=== PATIENT | male | born 1960 | race Caucasian/White ===

== ENCOUNTER 2017-08-16 15:06 | Inpatient (IN) | payer OTHER ==
[2017-08-16] VITALS (16 sets, daily range): BP systolic 148–190; BP diastolic 106–134; PULSE 106–124; O2SAT 89–95; Ht 177.8 cm; Wt 93.7 kg
[~2017-08-16] VITALS: Ht 177.8 cm; Wt 93.7 kg
[2017-08-16] MEDS ORDERED: LORAZEPAM 2 MG/ML 1 ML VIAL IV STA (15:17)
[2017-08-16] MEDS ORDERED: ONDANSETRON INJ 2 MG/ML 2 ML VIAL IV STA ×2 (15:17→19:48)
[2017-08-16] MEDS ORDERED: SODIUM CHLORIDE 0.9% 1000ML 500 ML IV STA (15:17)
[2017-08-16] MEDS ORDERED: CLONIDINE HCL 0.1 MG TAB PO ONE (15:30)
--- NOTE | 2017-08-16 15:32 | EMERGENCY ROOM VISIT NOTE ---
History Report prepared by Kar: Miryam Paulino Under the Supervision of: Dr. Joes Varner M.D. First contact with patient: 15:12 Chief Complaint: STROKE SYMPTOMS Stated Complaint: WEAKNESS, SLURRED SPEECH History of Present Illness The patient is a 57 year old male who presents to the Emergency Room with complaints of constant stroke like symptoms beginning 12 hours ago. The patient got to [facility] a couple of hours ago. The patient states [facility] He reports room spinning, decreased appetite, and vomiting. He also reports neck pain and a headache beginning after he fell. He denies any fever. The patient is on clonidine, oxycodone, and Klonopin. The patient has not taken any of his medications since yesterday. The patient has a history of seizures, a stroke in 2008, tracheostomy, feeding tube, and PEs. The patient is not on any blood thinner currently. History is limited secondary to the patient being a poor historian. The patient reports alcohol use daily. Source of History: patient History Limited By: other (poor historian) Onset: this morning Position: other (generalized) Quality: other (room spinning) Timing: constant Associated Symptoms: + headache, + neck pain, + vomiting, No fevers Review of Systems ROS is limited secondary to the patient being a poor historian. Past Medical & Surgical Medical Problems: (1) Seizure (2) Stroke Family History Patient reports no known family medical history. Social History Smoking Status: Former Smoker Alcohol Use: other (daily) Occupation Status: other (prisoner) Current/Historical Medications Scheduled Aspirin (Aspirin Chewable), 81 MG PO DAILY Clonazepam (Klonopin), 1 MG PO QPM Clonidine Hcl (Catapres), 0.1 MG PO BID Omeprazole (Prilosec), 20 MG PO DAILY Thiamine Hcl (Vitamin B-1), 100 MG PO DAILY Scheduled PRN Oxycodone Ir (Roxicodone Ir), 5 MG PO Q8H PRN for Pain Allergies Coded Allergies: Shellfish (Unverified Adverse Reaction, Severe, hives/swelling of the throat, 08/16/17) Physical Exam Vital Signs Date Time Temp Pulse Resp B/P (MAP) Pulse Ox O2 Delivery O2 Flow Rate FiO2 08/16/17 17:40 150/121 08/16/17 17:36 111 18 08/16/17 17:07 160/115 08/16/17 17:06 113 21 95 08/16/17 16:59 173/115 08/16/17 16:36 143 18 08/16/17 16:24 139 08/16/17 16:21 170/119 08/16/17 15:37 157/113 08/16/17 15:37 133 22 157/113 94 Room Air 08/16/17 15:36 135 16 94 08/16/17 15:25 97 Room Air 08/16/17 15:09 36.9 137 24 163/128 93 Room Air Physical Exam GENERAL: Patient is in no acute distress. HEENT: No acute trauma, normocephalic atraumatic, mucous membranes moist, no nasal congestion, no scleral icterus. NECK: No stridor, no adenopathy, no meningismus, trachea is midline. LUNGS: Clear to auscultation bilaterally, no wheeze, no rhonchi, breath sounds equal. HEART: Tachycardic with regular rhythm, no murmurs. ABDOMEN: Soft, nontender, bowel sounds positive, no hernias, no peritonitis. EXTREMITIES: No cyanosis or edema, full range of motion of all the joints without pain or difficulty, no signs for acute trauma. NEUROLOGIC: Awake, alert and oriented x 3, somewhat thickened speech, no facial droop, no focal motor deficits, no extremity weakness. SKIN: No rash, no jaundice, no diaphoresis. Medical Decision & Procedures ER Provider Diagnostic Interpretation: Radiology results as stated below per my review and radiologist interpretation: CHEST ONE VIEW PORTABLE, KUB FINDINGS: CHEST: Nodular opacities of the lungs are seen measuring up to 4 mm which suggests calcified granulomas. There is mild prominence of the mediastinum which is nonspecific. Cardiac silhouette is upper limits of normal in size. Atherosclerosis of the aorta. There is no pneumothorax or pleural effusion. There are hazy subsegmental left basilar opacities noted. Bones of the chest appear grossly intact. KUB: Bowel gas pattern is nonobstructive. No urolith identified. No pneumoperitoneum or pneumatosis. Probable phleboliths of the pelvis. Indeterminate 8 mm round calcification projects over the right iliac wing. Prior fusion with discectomy changes of the lower lumbar spine. IMPRESSION: 1. Subsegmental left basilar opacities suggest atelectasis or less likely pneumonitis. 2. Bilateral nodular opacities of the lungs measuring up to 4 mm suggests calcified granulomas. 3. Nonobstructive bowel gas pattern. The above report was generated using voice recognition software. It may contain grammatical, syntax or spelling errors. Electronically signed by: Jake Turk M.D. CHEST ONE VIEW PORTABLE, KUB FINDINGS: CHEST: Nodular opacities of the lungs are seen measuring up to 4 mm which suggests calcified granulomas. There is mild prominence of the mediastinum which is nonspecific. Cardiac silhouette is upper limits of normal in size. Atherosclerosis of the aorta. There is no pneumothorax or pleural effusion. There are hazy subsegmental left basilar opacities noted. Bones of the chest appear grossly intact. KUB: Bowel gas pattern is nonobstructive. No urolith identified. No pneumoperitoneum or pneumatosis. Probable phleboliths of the pelvis. Indeterminate 8 mm round calcification projects over the right iliac wing. Prior fusion with discectomy changes of the lower lumbar spine. IMPRESSION: 1. Subsegmental left basilar opacities suggest atelectasis or less likely pneumonitis. 2. Bilateral nodular opacities of the lungs measuring up to 4 mm suggests calcified granulomas. 3. Nonobstructive bowel gas pattern. The above report was generated using voice recognition software. It may contain grammatical, syntax or spelling errors. Electronically signed by: Jake Turk M.D. CERVICAL SPINE W/O FINDINGS: Bones appear mildly demineralized. Mastoid air cells and middle ear cavities are clear. Cerumen noted within the bilateral external auditory canals. There is no acute cervical spine fracture or subluxation identified. Evaluation of the central canal and neuroforamen is better assessed by MRI. No definite high-grade central canal narrowing identified. There is a least moderate bilateral foraminal stenosis at C5-C6 along with moderate intervertebral disc space narrowing and facet arthrosis. Multilevel mild to moderate facet arthropathy. 3 mm anterolisthesis C2 on C3, likely secondary to long-standing facet disease. Moderate to severe facet arthropathy on the right at this level. Slight reversal the normal cervical lordosis. Lung apices are generally clear. No focal soft tissue abnormality. Atherosclerosis of the bilateral carotid vasculature. IMPRESSION: 1. No acute cervical spine fracture or subluxation identified. 2. Multilevel degenerative changes of the cervical spine as above. 3 mm anterolisthesis C2 on C3 is likely secondary to long-standing facet arthrosis. The above report was generated using voice recognition software. It may contain grammatical, syntax or spelling errors. Electronically signed by: Jake Turk M.D. HEAD WITHOUT CONTRAST (CT) FINDINGS: No acute intracranial hemorrhage, midline shift, intracranial mass, hydrocephalus, territorial ischemia or abnormal extra-axial collection. Cerebral vascular calcifications are seen at the level the skull base. Moderate atrophy with ex vacuo ventriculomegaly. Ill-defined areas of low-attenuation within the periventricular and subcortical white matter suggest chronic microvascular ischemic changes. Encephalomalacia of the right frontal and posterior right parietal lobes are compatible with areas of remote infarction. Ill-defined area of low-attenuation within the central glenys measures 8 mm. ill-defined area of low-attenuation within the ventral medulla, image 6 series 2 is favored to be artifactual. The calvarium is intact. Mastoid air cells are clear. Moderate mucosal thickening of the right maxillary sinus. Mild ethmoid and left maxillary sinus disease. 5 mm osteoma of the right anterior ethmoid air cells. Scalp and soft tissues are unremarkable. IMPRESSION: 1. No acute intracranial hemorrhage, midline shift or territorial infarction. 2. Ill-defined 8 mm area of low-attenuation within the central glenys suggests age-indeterminate lacunar infarction. Correlate with prior imaging. 3. Atrophy with chronic microvascular ischemic changes, appears advanced for patient's stated age. Encephalomalacia from areas of remote infarction involve the right frontal and parietal lobes. The above report was generated using voice recognition software. It may contain grammatical, syntax or spelling errors. Electronically signed by: Jake Turk M.D. Laboratory Results 08/16/17 15:30 Red Blood Count 5.13, Mean Corpuscular Volume 91.0, Mean Corpuscular Hemoglobin 32.7, Mean Corpuscular Hemoglobin Concent 36.0, Mean Platelet Volume 9.2, Neutrophils (%) (Auto) 85.0, Lymphocytes (%) (Auto) 6.8, Monocytes (%) (Auto) 7.5, Eosinophils (%) (Auto) 0.0, Basophils (%) (Auto) 0.3, Neutrophils # (Auto) 8.48, Lymphocytes # (Auto) 0.68, Monocytes # (Auto) 0.75, Eosinophils # (Auto) 0.00, Basophils # (Auto) 0.03 08/16/17 15:30 Test 08/16/17 15:30 08/16/17 17:00 08/16/17 17:51 White Blood Count 9.98 K/uL (4.8-10.8) Red Blood Count 5.13 M/uL (4.7-6.1) Hemoglobin 16.8 g/dL (14.0-18.0) Hematocrit 46.7 % (42-52) Mean Corpuscular Volume 91.0 fL (80-100) Mean Corpuscular Hemoglobin 32.7 pg (25-34) Mean Corpuscular Hemoglobin Concent 36.0 g/dl (32-36) Platelet Count 245 K/uL (130-400) Mean Platelet Volume 9.2 fL (7.4-10.4) Neutrophils (%) (Auto) 85.0 % Lymphocytes (%) (Auto) 6.8 % Monocytes (%) (Auto) 7.5 % Eosinophils (%) (Auto) 0.0 % Basophils (%) (Auto) 0.3 % Neutrophils # (Auto) 8.48 K/uL (1.4-6.5) Lymphocytes # (Auto) 0.68 K/uL (1.2-3.4) Monocytes # (Auto) 0.75 K/uL (0.11-0.59) Eosinophils # (Auto) 0.00 K/uL (0-0.5) Basophils # (Auto) 0.03 K/uL (0-0.2) RDW Standard Deviation 41.2 fL (36.4-46.3) RDW Coefficient of Variation 12.2 % (11.5-14.5) Immature Granulocyte % (Auto) 0.4 % Immature Granulocyte # (Auto) 0.04 K/uL (0.00-0.02) Prothrombin Time 10.9 SECONDS (9.0-12.0) Prothromb Time International Ratio 1.0 (0.9-1.1) Activated Partial Thromboplast Time 23.3 SECONDS (21.0-31.0) Partial Thromboplastin Ratio 0.9 Anion Gap 19.0 mmol/L (3-11) Estimated GFR () 84.1 Estimated GFR (Non- 72.5 BUN/Creatinine Ratio 4.1 (10-20) Calcium Level 8.7 mg/dl (8.5-10.1) Magnesium Level 1.3 mg/dl (1.8-2.4) Total Bilirubin 1.8 mg/dl (0.2-1) Aspartate Amino Transf (AST/SGOT) 133 U/L (15-37) Alanine Aminotransferase (ALT/SGPT) 73 U/L (12-78) Alkaline Phosphatase 77 U/L (45-117) Total Creatine Kinase 305 U/L (39-308) Troponin I < 0.015 ng/ml (0-0.045) Total Protein 9.0 gm/dl (6.4-8.2) Albumin 4.0 gm/dl (3.4-5.0) Globulin 5.0 gm/dl (2.5-4.0) Albumin/Globulin Ratio 0.8 (0.9-2) Thyroid Stimulating Hormone (TSH) 0.563 uIu/ml (0.300-4.500) Urine Color DK YELLOW Urine Appearance CLEAR (CLEAR) Urine pH 5.0 (4.5-7.5) Urine Specific Sadler 1.023 (1.000-1.030) Urine Protein 2+ (NEG) Urine Glucose (UA) NEG (NEG) Urine Ketones 3+ (NEG) Urine Occult Blood 2+ (NEG) Urine Nitrite NEG (NEG) Urine Bilirubin NEG (NEG) Urine Urobilinogen NEG (NEG) Urine Leukocyte Esterase TRACE (NEG) Laboratory results reviewed by me. Medications Administered Medications (Trade) Dose Ordered Sig/Stefano Route Start Time Stop Time Status Last Admin Dose Admin Sodium Chloride 500 ml @ 999 mls/hr Q31M STAT IV 08/16/17 15:17 08/16/17 15:47 DC 08/16/17 15:33 999 MLS/HR Ondansetron HCl (Zofran Inj) 4 mg NOW STAT IV 08/16/17 15:17 08/16/17 15:22 DC 08/16/17 15:34 4 MG Morphine Sulfate (MoRPHine SULFATE INJ) 4 mg Q30M PRN IV 08/16/17 15:30 08/30/17 15:29 08/16/17 15:34 4 MG Clonidine HCl (Catapres Tab) 0.1 mg NOW ONCE PO 08/16/17 15:30 08/16/17 15:31 DC 08/16/17 16:37 0.1 MG Lorazepam (Ativan Inj) 0.5 mg NOW STAT IV 08/16/17 15:17 08/16/17 15:22 DC 08/16/17 15:33 0.5 MG Magnesium Sulfate (Magnesium Sulfate) 2 gm NOW STAT IV 08/16/17 16:08 08/16/17 16:09 DC 08/16/17 16:37 2 GM Morphine Sulfate (MoRPHine SULFATE INJ) 4 mg NOW STAT IV 08/16/17 16:22 08/16/17 16:23 DC 08/16/17 16:37 4 MG Lidocaine HCl (Viscous Lidocaine 2% Soln) 10 ml NOW STAT PO 08/16/17 16:22 08/16/17 16:23 DC 08/16/17 16:37 10 ML Al Hydroxide/Mg Hydroxide (Maalox Susp) 30 ml NOW STAT PO 08/16/17 16:22 08/16/17 16:23 DC 08/16/17 16:37 30 ML Labetalol HCl (Normodyne IV) 20 mg NOW STAT IV 08/16/17 16:37 08/16/17 16:38 DC 08/16/17 17:01 20 MG Multivitamins 10 ml/Thiamine HCl 100 mg/Folic Acid 1 mg/Sodium Chloride 1,011.2 ml @ 500 mls/ hr Q2H2M ONCE IV 08/16/17 16:45 08/16/17 18:46 08/16/17 17:41 500 MLS/HR Labetalol HCl (Normodyne IV) 20 mg NOW STAT IV 08/16/17 17:41 08/16/17 17:42 DC 08/16/17 17:53 20 MG ECG Per My Interpretation Indication: other (tachycardia) Rate (beats per minute): 132 Rhythm: sinus tachycardia Findings: other (Diffuse nonspecific ST and T wave changes, poor R-wave progession ) ED Course 1513: The patient was evaluated in room A10. A complete history and physical exam was performed. 1517: Ordered Ativan Inj 0.5 mg IV, Zofran Inj 4 mg IV, Sodium Chloride 500 ml @ 999 mls/hr IV. 1530: Ordered Clonidine HCl 0.1 mg PO, Morphine Sulfate 4 mg IV. 1608: Ordered Magnesium Sulfate 2 gm IV. 1622: Ordered Maalox Susp 30 ml PO, Lidocaine HCl 10 ml PO, Morphine Sulfate 4 mg IV. 1637: Ordered Labetalol HCl 20 mg IV 1641: I updated the patient on his test results. 1645: Ordered Multivitamins 10 ml/Thiamine HCl 100 mg /Folic Acid 1 mg/Sodium Chloride 1,011.2 ml @ 500 mls/hr IV. 1741: Ordered Labetalol HCl 20 mg IV. 1742: I updated the patient on his test results. He is agreeable to the treatment plan. 1746: Discussed the patient's case with Dr. Moreno. The patient will be evaluated for further management. Medical Decision Differential diagnoses include: withdrawal, intracranial bleed, stroke, bowel obstruction, pneumonia, dehydration, viral illness, infection. There is no leukocytosis or concerning anemia. Renal panel testing shows a low magnesium, no kidney failure. There were a few mild liver enzyme elevations. The patient appears to be in a euthyroid state. EKG shows a sinus tachycardia with some nonspecific change. No acute ischemia. Cardiac enzyme testing 1 is not consistent with acute cardiac injury. Brain CT shows evidence for prior CVA , no acute bleed or mass-effect. C-spine CT does not show fracture, some arthritis was seen. Chest x-ray does not show pneumonia or pneumothorax. There is no worrisome CHF. KUB does not show bowel obstruction or significant constipation. Urinalysis does not show infection, dehydration was noted. Urine drug screen is pending. The patient presents hypertensive, vomiting and tachycardic. There was concern at the shelter that he may have suffered a new CVA, I think this is unlikely. Patient has had symptoms now for at least12 hours, he is not in the window for TPA. He has no focal neurologic deficits on my evaluation. I suspect his symptoms are more so from withdrawal. He has not had his regular meds in at least 24 hours, he has not had alcohol today, he has not had his benzodiazepine or narcotic dosing today. The patient was aggressively managed. He received a banana bag for hydration. He received oral clonidine, IV Zofran, IV morphine. He was given IV labetalol, a second dose was given to help the heart rate and blood pressure. He received IV Ativan as well as a GI cocktail. He was ordered for IV magnesium. The patient is currently resting comfortably. His heart rate is improved, his blood pressure is improved but still high. He remains without any focal neurologic deficit. I do think the patient requires a hospital stay. Again, I suspect his symptoms are primarily from withdrawal. He requires further care in the hospital for his symptoms. I did speak with case management, the guards and the patient were informed. The on-call hospitalist was consulted. Medication Reconcilliation Current Medication List: was personally reviewed by me Blood Pressure Screening Patient's blood pressure: Elevated blood pressure Blood pressure disposition: Referred to PCP (referred to hospitalist) Consults Time Called: 1743 Consulting Physician: Dr. Moreno Returned Call: [phone] Discussed the patient's case with Dr. Moreno. The patient will be evaluated for further management. Impression Primary Impression: Hypertension Additional Impressions: Tachycardia Medication withdrawal Stroke-like symptoms Critical Care I have personally spent greater than 30 minutes of critical care time in the direct management of this patient. This includes bedside care, interpretation of diagnostic studies and testing, discussion with consultants, the patient, and family members, and other required patient management activities. This 30 minutes is in excess of all separately billable procedures. Scribe Attestation The scribe's documentation has been prepared under my direction and personally reviewed by me in its entirety. I confirm that the note above accurately reflects all work, treatment, procedures, and medical decision making performed by me. Departure Information Dispostion Being Evaluated By Hospitalist Referrals No Doctor, Assigned (PCP) Patient Instructions My [facility] Stroke History Time Last Known Well 12 hours ago Stroke t-PA Criteria Reviewed Does NOT meet criteria for t-PA Reason t-PA Not Given Treatment not indicated Problem Qualifiers
[2017-08-16] MEDS: MoRPHine SULFATE 4 MG/ML 1 ML CARP\\VIAL IV PRN ×2 (15:34→19:37)
[2017-08-16 15:42] LABS: BASO % 0.3 %; BASO ABS # 0.03 K/uL (0-0.2); HEMATOCRIT 46.7 % (42-52); HEMOGLOBIN 16.8 g/dL (14.0-18.0); IG# 0.04 K/uL (0.00-0.02); LYMPH % 6.8 %; LYMPH ABS # 0.68 K/uL (1.2-3.4); MEAN CORPUSCULAR HEMOGLOBIN 32.7 pg (25-34); MEAN PLATELET VOLUME 9.2 fL (7.4-10.4); MONO % 7.5 %; MONO ABS # 0.75 K/uL (0.11-0.59); NEUT ABS # 8.48 K/uL (1.4-6.5); PLATELET COUNT 245 K/uL (130-400); RED CELL DISTRIBUTION WIDTH CV 12.2 % (11.5-14.5); RED CELL DISTRIBUTION WIDTH SD 41.2 fL (36.4-46.3); WHITE BLOOD COUNT 9.98 K/uL (4.8-10.8)
--- NOTE | 2017-08-16 15:50 | DIAGNOSTIC IMAGING REPORT ---
CHEST ONE VIEW PORTABLE, KUB HISTORY: 57 years-old Male EVALUATE ALTERED MENTAL STATUS/WEAKNESS acute altered mental status COMPARISON: None available TECHNIQUE: Portable AP view of the chest with KUB radiograph FINDINGS: CHEST: Nodular opacities of the lungs are seen measuring up to 4 mm which suggests calcified granulomas. There is mild prominence of the mediastinum which is nonspecific. Cardiac silhouette is upper limits of normal in size. Atherosclerosis of the aorta. There is no pneumothorax or pleural effusion. There are hazy subsegmental left basilar opacities noted. Bones of the chest appear grossly intact. KUB: Bowel gas pattern is nonobstructive. No urolith identified. No pneumoperitoneum or pneumatosis. Probable phleboliths of the pelvis. Indeterminate 8 mm round calcification projects over the right iliac wing. Prior fusion with discectomy changes of the lower lumbar spine. IMPRESSION: 1. Subsegmental left basilar opacities suggest atelectasis or less likely pneumonitis. 2. Bilateral nodular opacities of the lungs measuring up to 4 mm suggests calcified granulomas. 3. Nonobstructive bowel gas pattern. The above report was generated using voice recognition software. It may contain grammatical, syntax or spelling errors. Electronically signed by: Jake Turk M.D. 08/16/2017 3:48 PM Dictated Date/Time: 08/16/2017 3:46 PM
[2017-08-16 15:52] LABS: PTT PATIENT 23.3 SECONDS (21.0-31.0)
[2017-08-16 16:00] LABS: ALT/SGPT 73 U/L (12-78); AST/SGOT 133 U/L (15-37); BLOOD UREA NITROGEN 5 mg/dl (7-18); CALCIUM 8.7 mg/dl (8.5-10.1); CARBON DIOXIDE 19 mmol/L (21-32); CREATININE 1.12 mg/dl (0.60-1.40); GLUCOSE 95 mg/dl (70-99); POTASSIUM 3.1 mmol/L (3.5-5.1); SODIUM 139 mmol/L (136-145)
[2017-08-16] MEDS ORDERED: MAGNESIUM SULFATE 1GM / D5W 1 GM BAG IV STA (16:08)
[2017-08-16 16:11] LABS: ALKALINE PHOSPHATASE 77 U/L (45-117)
[2017-08-16] MEDS ORDERED: LIDOCAINE HCL 2% VISC SOLN 20 ML UDC PO STA (16:22)
[2017-08-16] MEDS ORDERED: MoRPHine SULFATE 4 MG/ML 1 ML CARP\\VIAL IV STA (16:22)
[2017-08-16] MEDS ORDERED: ALUMINUM/MAGNESIUM SUSP 30 ML UDC PO STA (16:22)
--- NOTE | 2017-08-16 16:33 | DIAGNOSTIC IMAGING REPORT ---
HEAD WITHOUT CONTRAST (CT) CLINICAL HISTORY: 57 years-old Male with EVALUATE ALTERED MENTAL STATUS/WEAKNESS. Acute strokelike symptoms TECHNIQUE: Multiple axial CT images of the head were obtained without contrast. A dose lowering technique was utilized adhering to the principles of ALARA. COMPARISON: CT cervical spine of same day. FINDINGS: No acute intracranial hemorrhage, midline shift, intracranial mass, hydrocephalus, territorial ischemia or abnormal extra-axial collection. Cerebral vascular calcifications are seen at the level the skull base. Moderate atrophy with ex vacuo ventriculomegaly. Ill-defined areas of low-attenuation within the periventricular and subcortical white matter suggest chronic microvascular ischemic changes. Encephalomalacia of the right frontal and posterior right parietal lobes are compatible with areas of remote infarction. Ill-defined area of low-attenuation within the central glenys measures 8 mm. ill-defined area of low-attenuation within the ventral medulla, image 6 series 2 is favored to be artifactual. The calvarium is intact. Mastoid air cells are clear. Moderate mucosal thickening of the right maxillary sinus. Mild ethmoid and left maxillary sinus disease. 5 mm osteoma of the right anterior ethmoid air cells. Scalp and soft tissues are unremarkable. IMPRESSION: 1. No acute intracranial hemorrhage, midline shift or territorial infarction. 2. Ill-defined 8 mm area of low-attenuation within the central glenys suggests age-indeterminate lacunar infarction. Correlate with prior imaging. 3. Atrophy with chronic microvascular ischemic changes, appears advanced for patient's stated age. Encephalomalacia from areas of remote infarction involve the right frontal and parietal lobes. The above report was generated using voice recognition software. It may contain grammatical, syntax or spelling errors. Electronically signed by: Jake Turk M.D. 08/16/2017 4:31 PM Dictated Date/Time: 08/16/2017 4:26 PM
[2017-08-16] MEDS ORDERED: LABETALOL HCL IV 5 MG/ML 20ML IV STA ×2 (16:37→17:41)
[2017-08-16] MEDS ORDERED: MULTI-VITAMIN INFUSION INJ 10 ML, THIAMINE HCL INJ 100 MG, FoLIC ACID INJ 1 MG in SODIU... IV ONE (16:45)
--- NOTE | 2017-08-16 16:47 | DIAGNOSTIC IMAGING REPORT ---
CERVICAL SPINE W/O CT DOSE: 1164.05 mGy.cm CLINICAL HISTORY: 57 years-old Male with fall, neck pain. Acute neck injury status post fall with acutely altered mental status and weakness COMPARISON: CT head of same day TECHNIQUE: Multiple axial CT images of the cervical spine were obtained without contrast. A dose lowering technique was utilized adhering to the principles of ALARA. FINDINGS: Bones appear mildly demineralized. Mastoid air cells and middle ear cavities are clear. Cerumen noted within the bilateral external auditory canals. There is no acute cervical spine fracture or subluxation identified. Evaluation of the central canal and neuroforamen is better assessed by MRI. No definite high-grade central canal narrowing identified. There is a least moderate bilateral foraminal stenosis at C5-C6 along with moderate intervertebral disc space narrowing and facet arthrosis. Multilevel mild to moderate facet arthropathy. 3 mm anterolisthesis C2 on C3, likely secondary to long-standing facet disease. Moderate to severe facet arthropathy on the right at this level. Slight reversal the normal cervical lordosis. Lung apices are generally clear. No focal soft tissue abnormality. Atherosclerosis of the bilateral carotid vasculature. IMPRESSION: 1. No acute cervical spine fracture or subluxation identified. 2. Multilevel degenerative changes of the cervical spine as above. 3 mm anterolisthesis C2 on C3 is likely secondary to long-standing facet arthrosis. The above report was generated using voice recognition software. It may contain grammatical, syntax or spelling errors. Electronically signed by: Jake Turk M.D. 08/16/2017 4:45 PM Dictated Date/Time: 08/16/2017 4:37 PM
[2017-08-16] MEDS ORDERED: RXC5 PO (16:58)
[2017-08-16] MEDS ORDERED: CTP/1 PO (16:59)
[2017-08-16] MEDS ORDERED: CLON1TAB3 PO (17:02)
[2017-08-16] MEDS ORDERED: PRLSR20 PO (18:09)
[2017-08-16] MEDS ORDERED: OXYC1TAB3 PO (18:09)
[2017-08-16] MEDS ORDERED: ASPCH81X PO (18:09)
[2017-08-16] MEDS ORDERED: THIA50CA PO (18:09)
[2017-08-16] MEDS ORDERED: HydrALAZINE HCL 20 MG/ML VIAL IV STA (19:44)
--- NOTE | 2017-08-16 21:13 | History and Physical ---
History & Physical Date & Time of Service: Aug 16, 2017 at 21:12 . Chief Complaint: Weakness, Slurred Speech . Primary Care Physician: [facility] . History of Present Illness Source: patient, hospital records 57-year-old male from [place], followed by Dr. Woodson. Complicated medical history includes alcohol abuse, cerebrovascular disease with prior ischemic strokes, recurrent aspiration pneumonia, hypertension, DVT, pulmonary embolism, and other problems noted below. Hospitalized at [facility] in February 2017 with aspiration pneumonia complicated by empyema. Managed with antibiotics and chest tube placement. Admitted to [facility] again on 06/16/17 after being found unresponsive. Was found to be confused and hypoxic. Required endotracheal intubation. Treated for alcohol withdrawal. Discharged to home. Incarcer[facility] over the last 24 hours[facility] to [facility]. Upon arrival to [facility], he appeared to be ill, unsteady, and dysarthric. Patient was referred to the ED for further evaluation. In the ED he was found to be hypertensive and tachycardic. History of hypertension, but has not been taking his prescribed hypertensives ( clonidine and metoprolol) for at least 1 week because he ran out of his medications. Patient states that his last alcohol consumption was about 2 days prior to admission. . Past Medical/Surgical History Chronic and Resolved Medical Problems: (1) Alcohol abuse Status: Chronic (2) Anemia Status: Chronic (3) Basilar artery stenosis Status: Chronic (4) Cerebrovascular disease Permanent Comment: s/p ischemic strokes-right frontal, right parietal, pontine Status: Chronic (5) Chronic pain Status: Chronic (6) COPD (chronic obstructive pulmonary disease) Status: Chronic (7) Difficult intubation Status: Chronic (8) Hepatitis C Status: Chronic (9) History of deep venous thrombosis Status: Chronic (10) History of pulmonary embolism Status: Chronic (11) Hypertension Status: Chronic (12) Hyponatremia Status: Chronic (13) Pulmonary nodules Status: Chronic (14) Seizure Status: Chronic Surgical Problems: (1) Status post lumbar surgery Status: Chronic (2) Status post tracheostomy Status: Chronic . Family History FATHER Heart disease BROTHER Heart disease Social History Smoking Status: Former Smoker Alcohol Use: heavy Occupational Status: other (prisoner) Allergies Coded Allergies: Shellfish (Unverified Adverse Reaction, Severe, hives/swelling of the throat, 08/16/17) Home Medications Scheduled Aspirin (Aspirin Chewable), 81 MG PO DAILY Clonazepam (Klonopin), 1 MG PO QPM Clonidine Hcl (Catapres), 0.1 MG PO BID Omeprazole (Prilosec), 20 MG PO DAILY Thiamine Hcl (Vitamin B-1), 100 MG PO DAILY Scheduled PRN Oxycodone Ir (Roxicodone Ir), 5 MG PO Q8H PRN for Pain Review of Systems Constitutional: No fever Eyes: No worsening of vision ENT: + hearing loss Respiratory: No cough, No shortness of breath Cardiovascular: No chest pain Abdomen: + nausea, + vomiting Musculoskeletal: + joint pain Genitourinary - Male: No hematuria, No dysuria Neurologic: + balance problems Psychiatric: + depression symptoms Endocrine: + fatigue Hematologic / Lymphatic: No abnormal bleeding/bruising Physical Exam Vital Signs Date Time Temp Pulse Resp B/P (MAP) Pulse Ox O2 Delivery O2 Flow Rate FiO2 08/16/17 20:54 123 08/16/17 20:45 171/115 96 Room Air 08/16/17 20:41 125 23 08/16/17 20:30 160/110 08/16/17 20:16 153/105 08/16/17 20:11 122 22 08/16/17 20:00 177/118 08/16/17 19:52 156/122 08/16/17 19:41 117 18 08/16/17 19:36 179/117 94 Room Air 08/16/17 19:15 116 20 08/16/17 18:45 115 27 08/16/17 17:40 150/121 08/16/17 17:36 111 18 08/16/17 17:07 160/115 08/16/17 17:06 113 21 95 08/16/17 16:59 173/115 08/16/17 16:36 143 18 08/16/17 16:24 139 08/16/17 16:21 170/119 08/16/17 15:37 157/113 08/16/17 15:37 133 22 157/113 94 Room Air 08/16/17 15:36 135 16 94 08/16/17 15:25 97 Room Air 08/16/17 15:09 36.9 137 24 163/128 93 Room Air CONSTITUTIONAL vital signs as noted above adult male, unkempt, no acute distress EYES conjunctivae injected; lids normal pupils equal and reactive to light EARS, NOSE, MOUTH AND THROAT external inspection of ears and nose unremarkable hard of hearing oropharynx clear dentition poor NECK no masses; trachea midline; healed tracheostomy scar thyroid normal RESPIRATORY normal respiratory effort; no respiratory distress clear to percussion clear to auscultation CARDIOVASCULAR regular rate and rhythm, tachy I/ systolic murmur at base, S4 gallop, no rub appreciated abdominal aorta not palpable pedal pulses intact and symmetric no pretibial edema GASTROINTESTINAL normal bowel sounds, soft, nontender; no palpable masses no hepatomegaly; no splenomegaly LYMPHATIC no cervical adenopathy MUSCULOSKELETAL no cyanosis; no digital clubbing no calf tenderness mild weakness lower extremities SKIN no rash warm and dry NEUROLOGIC PERRL, EOMI, no facial palsy, dysarthric resting tremor PSYCHIATRIC oriented to person, place, time anxious . Diagnostics Laboratory Results Results Past 24 Hours Test 08/16/17 15:30 08/16/17 17:00 Range/Units White Blood Count 9.98 4.8-10.8 K/uL Red Blood Count 5.13 4.7-6.1 M/uL Hemoglobin 16.8 14.0-18.0 g/dL Hematocrit 46.7 42-52 % Mean Corpuscular Volume 91.0 80-100 fL Mean Corpuscular Hemoglobin 32.7 25-34 pg Mean Corpuscular Hemoglobin Concent 36.0 32-36 g/dl Platelet Count 245 130-400 K/uL Mean Platelet Volume 9.2 7.4-10.4 fL Neutrophils (%) (Auto) 85.0 % Lymphocytes (%) (Auto) 6.8 % Monocytes (%) (Auto) 7.5 % Eosinophils (%) (Auto) 0.0 % Basophils (%) (Auto) 0.3 % Neutrophils # (Auto) 8.48 1.4-6.5 K/uL Lymphocytes # (Auto) 0.68 1.2-3.4 K/uL Monocytes # (Auto) 0.75 0.11-0.59 K/uL Eosinophils # (Auto) 0.00 0-0.5 K/uL Basophils # (Auto) 0.03 0-0.2 K/uL RDW Standard Deviation 41.2 36.4-46.3 fL RDW Coefficient of Variation 12.2 11.5-14.5 % Immature Granulocyte % (Auto) 0.4 % Immature Granulocyte # (Auto) 0.04 0.00-0.02 K/uL Prothrombin Time 10.9 9.0-12.0 SECONDS Prothromb Time International Ratio 1.0 0.9-1.1 Activated Partial Thromboplast Time 23.3 21.0-31.0 SECONDS Partial Thromboplastin Ratio 0.9 Sodium Level 139 136-145 mmol/L Potassium Level 3.1 3.5-5.1 mmol/L Chloride Level 101 98-107 mmol/L Carbon Dioxide Level 19 21-32 mmol/L Anion Gap 19.0 3-11 mmol/L Blood Urea Nitrogen 5 7-18 mg/dl Creatinine 1.12 0.60-1.40 mg/dl Estimated GFR () 84.1 Estimated GFR (Non- 72.5 BUN/Creatinine Ratio 4.1 10-20 Random Glucose 95 70-99 mg/dl Calcium Level 8.7 8.5-10.1 mg/dl Magnesium Level 1.3 1.8-2.4 mg/dl Total Bilirubin 1.8 0.2-1 mg/dl Aspartate Amino Transf (AST/SGOT) 133 15-37 U/L Alanine Aminotransferase (ALT/SGPT) 73 12-78 U/L Alkaline Phosphatase 77 45-117 U/L Total Creatine Kinase 305 39-308 U/L Troponin I < 0.015 0-0.045 ng/ml Total Protein 9.0 6.4-8.2 gm/dl Albumin 4.0 3.4-5.0 gm/dl Globulin 5.0 2.5-4.0 gm/dl Albumin/Globulin Ratio 0.8 0.9-2 Thyroid Stimulating Hormone (TSH) 0.563 0.300-4.500 uIu/ml Urine Color DK YELLOW Urine Appearance CLEAR CLEAR Urine pH 5.0 4.5-7.5 Urine Specific [place] 1.023 1.000-1.030 Urine Protein 2+ NEG Urine Glucose (UA) NEG NEG Urine Ketones 3+ NEG Urine Occult Blood 2+ NEG Urine Nitrite NEG NEG Urine Bilirubin NEG NEG Urine Urobilinogen NEG NEG Urine Leukocyte Esterase TRACE NEG Urine WBC (Auto) 1-5 0-5 /hpf Urine RBC (Auto) 0-4 0-4 /hpf Urine Hyaline Casts (Auto) 5-10 0-5 /lpf Urine Epithelial Cells (Auto) 10-20 0-5 /lpf Urine Bacteria (Auto) NEG NEG Urine Opiates Screen POS NEG Urine Methadone, Qualitative NEG NEG Urine Barbiturates NEG NEG Urine Phencyclidine (PCP) Level NEG NEG Ur Amphetamine/Methamphetamine NEG NEG MDMA (Ecstasy) Screen NEG NEG Urine Benzodiazepines Screen NEG NEG Urine Cocaine Metabolite NEG NEG Urine Marijuana (THC) NEG NEG Diagnostic Radiology CHEST ONE VIEW PORTABLE, KUB FINDINGS: CHEST: Nodular opacities of the lungs are seen measuring up to 4 mm which suggests calcified granulomas. There is mild prominence of the mediastinum which is nonspecific. Cardiac silhouette is upper limits of normal in size. Atherosclerosis of the aorta. There is no pneumothorax or pleural effusion. There are hazy subsegmental left basilar opacities noted. Bones of the chest appear grossly intact. KUB: Bowel gas pattern is nonobstructive. No urolith identified. No pneumoperitoneum or pneumatosis. Probable phleboliths of the pelvis. Indeterminate 8 mm round calcification projects over the right iliac wing. Prior fusion with discectomy changes of the lower lumbar spine. IMPRESSION: 1. Subsegmental left basilar opacities suggest atelectasis or less likely pneumonitis. 2. Bilateral nodular opacities of the lungs measuring up to 4 mm suggests calcified granulomas. 3. Nonobstructive bowel gas pattern. The above report was generated using voice recognition software. It may contain grammatical, syntax or spelling errors. Electronically signed by: Jake Turk M.D. 08/16/2017 3:48 PM Dictated Date/Time: 08/16/2017 3:46 PM HEAD WITHOUT CONTRAST (CT) FINDINGS: No acute intracranial hemorrhage, midline shift, intracranial mass, hydrocephalus, territorial ischemia or abnormal extra-axial collection. Cerebral vascular calcifications are seen at the level the skull base. Moderate atrophy with ex vacuo ventriculomegaly. Ill-defined areas of low-attenuation within the periventricular and subcortical white matter suggest chronic microvascular ischemic changes. Encephalomalacia of the right frontal and posterior right parietal lobes are compatible with areas of remote infarction. Ill-defined area of low-attenuation within the central glenys measures 8 mm. ill-defined area of low-attenuation within the ventral medulla, image 6 series 2 is favored to be artifactual. The calvarium is intact. Mastoid air cells are clear. Moderate mucosal thickening of the right maxillary sinus. Mild ethmoid and left maxillary sinus disease. 5 mm osteoma of the right anterior ethmoid air cells. Scalp and soft tissues are unremarkable. IMPRESSION: 1. No acute intracranial hemorrhage, midline shift or territorial infarction. 2. Ill-defined 8 mm area of low-attenuation within the central glenys suggests age-indeterminate lacunar infarction. Correlate with prior imaging. 3. Atrophy with chronic microvascular ischemic changes, appears advanced for patient's stated age. Encephalomalacia from areas of remote infarction involve the right frontal and parietal lobes. The above report was generated using voice recognition software. It may contain grammatical, syntax or spelling errors. Electronically signed by: Jake Turk M.D. 08/16/2017 4:31 PM Dictated Date/Time: 08/16/2017 4:26 PM CERVICAL SPINE W/O CT DOSE: 1164.05 mGy.cm CLINICAL HISTORY: 57 years-old Male with fall, neck pain. Acute neck injury status post fall with acutely altered mental status and weakness COMPARISON: CT head of same day TECHNIQUE: Multiple axial CT images of the cervical spine were obtained without contrast. A dose lowering technique was utilized adhering to the principles of ALARA. FINDINGS: Bones appear mildly demineralized. Mastoid air cells and middle ear cavities are clear. Cerumen noted within the bilateral external auditory canals. There is no acute cervical spine fracture or subluxation identified. Evaluation of the central canal and neuroforamen is better assessed by MRI. No definite high-grade central canal narrowing identified. There is a least moderate bilateral foraminal stenosis at C5-C6 along with moderate intervertebral disc space narrowing and facet arthrosis. Multilevel mild to moderate facet arthropathy. 3 mm anterolisthesis C2 on C3, likely secondary to long-standing facet disease. Moderate to severe facet arthropathy on the right at this level. Slight reversal the normal cervical lordosis. Lung apices are generally clear. No focal soft tissue abnormality. Atherosclerosis of the bilateral carotid vasculature. IMPRESSION: 1. No acute cervical spine fracture or subluxation identified. 2. Multilevel degenerative changes of the cervical spine as above. 3 mm anterolisthesis C2 on C3 is likely secondary to long-standing facet arthrosis. The above report was generated using voice recognition software. It may contain grammatical, syntax or spelling errors. Electronically signed by: Jake Turk M.D. 08/16/2017 4:45 PM Dictated Date/Time: 08/16/2017 4:37 PM . EKG EKG performed at 15:[address] at 132 / minute, poor R- wave progression, inverted T-waves in lateral limb leads, ST depression in lateral precordial leads. . Impression Assessment and Plan PROBABLE ALCOHOL WITHDRAWAL Patient has history of heavy drinking and alcohol withdrawal syndrome. Last alcohol consumption was reportedly 2 days prior to admission. Alcohol withdrawal protocol initiated with gabapentin and lorazepam. Received IV thiamine, folate, MVI in ED. DYSARTHRIA / UNSTEADY GAIT / CEREBROVASCULAR DISEASE Chronic neurologic deficits from previous ischemic strokes. Head CT shows old infarcts with reports similar to previous scans at [facility]. Continue aspirin as GI symptoms allow. PT / OT evals when medically stable. HYPERTENSIVE URGENCY BP markedly elevated in ED. Was prescribed metoprolol and clonidine when discharged from [facility] in June, but ran out of his meds. Resume clonidine and metoprolol. IV labetalol PRN. HISTORY SEIZURES Suspect history of alcohol withdrawal seizures. Not on anti-convulsants. Seizure precautions. HISTORY RECURRENT ASPIRATION PNEUMONIA Probably multifactorial- cerebrovascular disease, alcoholism, etc. No fever, cough, or pulmonary infiltrates at this time. Aspiration precautions. HISTORY PULMONARY NODULES Recent CT chest at [facility] demonstrated small pulmonary nodules. Former smoker. CT follow-up recommended. Referral to Pulmonary Medicine if any concerns. HEPATITIS C Diagnosed at [facility]. HCV RNA = [id number] 05/28/16. Patient has been noncompliant with follow-up. VTE PROPHYLAXIS History of DVT and pulmonary embolism. Warfarin prescribed in the past, but stopped because of noncompliance and ongoing heavy drinking. No anticoagulants at this time due to alcohol abuse + GI symptoms. SCD's. DISPOSITION Expected return to [facility] when medically stable. . Resuscitation Status VTE Prophylaxis Will order VTE Prophylaxis: Yes
[2017-08-16] MEDS ORDERED: PANTOprazole INJ 40 MG in SYRINGE 0 ML IV ONE (22:00)
[2017-08-16] MEDS ORDERED: GABAPENTIN 600 MG TAB PO SCH (22:00)
[2017-08-16] MEDS: LABETALOL HCL IV 5 MG/ML 20ML IV PRN ×2 (22:21→23:52)
[2017-08-16] MEDS ORDERED: GABAPENTIN 1200MG LOADING DOSE PO SCH (23:00)
[2017-08-16] MEDS: LORAZEPAM 1 MG TAB PO PRN (23:09)
[2017-08-17] VITALS (31 sets, daily range): BP systolic 111–183; BP diastolic 81–128; PULSE 81–113; TEMP 36.5–37.4; O2SAT 92–100
[2017-08-17] MEDS: LORAZEPAM 1 MG TAB PO PRN ×2 (00:57→03:45)
[2017-08-17] MEDS: LABETALOL HCL IV 5 MG/ML 20ML IV PRN ×4 (00:59→12:40)
[2017-08-17] MEDS: GABAPENTIN 600MG Q6H DOSE PO SCH ×2 (06:14→12:02)
[2017-08-17] MEDS ORDERED: MULTI-VITAMIN INFUSION INJ 10 ML, THIAMINE HCL INJ 100 MG, FoLIC ACID INJ 1 MG in SODIU... IV ONE (07:00)
[2017-08-17] MEDS ORDERED: POTASSIUM CHLORIDE 10 MEQ TABCR PO STA (07:54)
[2017-08-17] MEDS: PANTOprazole INJ 40 MG in SYRINGE 0 ML IV SCH ×2 (07:59→21:39)
[2017-08-17] MEDS: CLONIDINE HCL 0.1 MG TAB PO SCH ×2 (08:00→21:39)
[2017-08-17] MEDS: METOPROLOL TARTRATE 25 MG TAB PO SCH ×2 (08:52→21:39)
[2017-08-17] MEDS: OXYCODONE HCL IR 5 MG TAB (IMMEDIATE RELEASE) PO PRN ×2 (08:58→16:53)
[2017-08-17 09:35] LABS: CREATININE 0.81 mg/dl (0.60-1.40)
[2017-08-17 09:36] LABS: ALBUMIN 3.3 gm/dl (3.4-5.0); CALCIUM 8.1 mg/dl (8.5-10.1); PHOSPHORUS 1.5 mg/dl (2.5-4.9); POTASSIUM 3.1 mmol/L (3.5-5.1); TOTAL PROTEIN 7.3 gm/dl (6.4-8.2)
--- NOTE | 2017-08-17 10:01 | Progress Note ---
Internal Med Progress Note Date of Service: Aug 17, 2017. Provider Documentation: SUBJECTIVE: The patient was seen and examined. Complains to have back pain and neck pain. He does have some radiation of pain down the legs. Denies to have significant tremor and lower shortness of breath. Feels a little bit better this morning. OBJECTIVE: Vital Signs-as noted below Exam: General-no distress at rest. No shortness of breath at rest. Eyes-normal ENT-normal Neck-supple, minimal pain 1 neck movement. Lungs-mildly decreased breath sounds bilaterally, no wheezing and/or crackles. Heart-regular, no murmur appreciated. Abdomen-slightly distended, nontender, no masses, bowel sounds present. Extremities-trace edema bilaterally. Neuro-alert awake and oriented 3. Mild generalized weakness. Minimal tremor with outstretched hands. Lab data as noted below. ASSESSMENT & PLAN: HYPERTENSIVE URGENCY Noted to have very high blood pressure in the emergency room. Was prescribed metoprolol and clonidine when discharged from [facility] in June, but ran out of his meds. Received IV labetalol as needed for blood pressure control. Resumed clonidine and metoprolol. Blood pressure remains mildly elevated this morning. Does not have any complaints of headache and/or chest pain/palpitations. We will continue current medications. ALCOHOL WITHDRAWAL Patient has history of heavy drinking and alcohol withdrawal syndrome. Last alcohol consumption was reportedly 2 days prior to admission. Alcohol withdrawal protocol initiated with gabapentin and lorazepam. Receiving thiamine and folic acid. We will continue IV Ativan as needed. Does not have any significant tremor and/or delirium at this time. ELECTROLYTES IMBALANCE Will replace and recheck DYSARTHRIA / UNSTEADY GAIT / CEREBROVASCULAR DISEASE Chronic neurologic deficits from previous ischemic strokes. Head CT shows old infarcts with reports similar to previous scans at [facility]. Continue aspirin as GI symptoms allow. Symptomatically a lot better and does not have any symptoms suggestive of stroke Unsteady gait could be secondary to effect of alcohol. We will get PT OT evaluation in the hospital. HISTORY OF SEIZURES Suspect history of alcohol withdrawal seizures. Not on anti-convulsants. Seizure precautions. No seizure activities noted in the hospital. H/O ASPIRATION PNEUMONIA Probably multifactorial- cerebrovascular disease, alcoholism, etc. No fever, cough, or pulmonary infiltrates at this time. Aspiration precautions. HISTORY OF PULMONARY NODULES Recent CT chest at [facility] demonstrated small pulmonary nodules. Former smoker. CT follow-up recommended. Referral to Pulmonary Medicine if any concerns. HEPATITIS C Diagnosed at [facility]. HCV RNA = [id number],660 05/28/16. Patient has been noncompliant with follow-up. VTE PROPHYLAXIS History of DVT and pulmonary embolism. Warfarin prescribed in the past, but stopped because of noncompliance and ongoing heavy drinking. No anticoagulants at this time due to alcohol abuse + GI symptoms. SCD's. DISPOSITION Expected return to [facility] when medically stable. Vital Signs: Date Time Temp Pulse Resp B/P (MAP) Pulse Ox O2 Delivery O2 Flow Rate FiO2 08/17/17 07:03 36.5 109 22 127/89 (102) 94 Room Air 08/17/17 06:17 98 18 161/116 (131) 95 Room Air 08/17/17 04:15 36.9 101 17 142/108 (119) 96 Room Air 08/17/17 04:00 94 Room Air 08/17/17 03:45 105 21 95 08/17/17 03:42 100 14 157/114 (128) 95 08/17/17 03:32 106 15 180/119 (139) 95 08/17/17 03:30 102 16 95 08/17/17 03:16 100 14 166/95 (118) 96 08/17/17 03:15 98 16 94 08/17/17 03:05 101 14 165/117 (133) 93 08/17/17 03:00 99 15 165/117 (133) 92 08/17/17 01:45 100 15 167/117 (134) 94 08/17/17 01:45 100 15 167/117 (134) 94 08/17/17 01:31 108 20 175/126 (142) 95 08/17/17 01:31 108 20 175/126 (142) 95 08/17/17 01:30 110 19 93 08/17/17 01:30 110 19 93 08/17/17 01:15 101 14 163/128 (140) 95 08/17/17 01:15 101 14 163/128 (140) 95 08/17/17 01:02 105 20 142/107 (119) 93 08/17/17 01:02 105 20 142/107 (119) 93 08/17/17 01:00 113 17 159/122 (134) 93 08/17/17 01:00 113 17 159/122 (134) 93 08/17/17 00:45 102 14 162/107 (125) 93 08/17/17 00:45 102 14 162/107 (125) 93 08/17/17 00:40 105 16 171/112 (131) 96 08/17/17 00:40 105 16 171/112 (131) 96 08/17/17 00:18 36.9 109 16 183/119 (140) 92 Room Air 08/17/17 00:16 108 27 166/124 (138) 08/17/17 00:16 108 27 166/124 (138) 08/17/17 00:15 108 14 08/17/17 00:15 108 14 08/17/17 00:00 106 18 164/116 (132) 100 08/17/17 00:00 106 18 164/116 (132) 100 08/17/17 00:00 93 Room Air 08/16/17 23:54 113 15 148/106 (120) 93 08/16/17 23:45 111 25 190/111 (137) 91 08/16/17 23:31 115 18 160/118 (132) 93 08/16/17 23:30 108 16 08/16/17 23:23 109 16 183/119 (140) 92 08/16/17 23:16 115 16 184/116 (138) 95 08/16/17 23:15 113 16 94 08/16/17 23:01 111 14 179/110 (133) 93 08/16/17 23:00 106 20 94 08/16/17 22:47 115 22 178/125 (142) 93 08/16/17 22:45 120 19 93 08/16/17 22:36 109 15 169/116 (133) 90 08/16/17 22:30 111 22 162/119 (133) 89 08/16/17 22:28 120 19 177/118 (137) 94 08/16/17 22:09 124 177/134 (148) 94 08/16/17 21:50 121 22 172/123 (139) 95 Room Air 08/16/17 21:50 121 22 172/123 Room Air 08/16/17 21:44 118 20 180/123 98 08/16/17 20:54 123 08/16/17 20:45 171/115 96 Room Air 08/16/17 20:41 125 23 08/16/17 20:30 160/110 08/16/17 20:16 153/105 08/16/17 20:11 122 22 08/16/17 20:00 177/118 08/16/17 19:52 156/122 08/16/17 19:41 117 18 08/16/17 19:36 179/117 94 Room Air 08/16/17 19:15 116 20 08/16/17 18:45 115 27 08/16/17 17:40 150/121 08/16/17 17:36 111 18 08/16/17 17:07 160/115 08/16/17 17:06 113 21 95 08/16/17 16:59 173/115 08/16/17 16:36 143 18 08/16/17 16:24 139 08/16/17 16:21 170/119 08/16/17 15:37 157/113 08/16/17 15:37 133 22 157/113 94 Room Air 08/16/17 15:36 135 16 94 08/16/17 15:25 97 Room Air 08/16/17 15:09 36.9 137 24 163/128 93 Room Air Lab Results: Results Past 24 Hours Test 08/16/17 15:30 08/16/17 17:00 08/17/17 08:03 Range/Units White Blood Count 9.98 4.8-10.8 K/uL Red Blood Count 5.13 4.7-6.1 M/uL Hemoglobin 16.8 14.0-18.0 g/dL Hematocrit 46.7 42-52 % Mean Corpuscular Volume 91.0 80-100 fL Mean Corpuscular Hemoglobin 32.7 25-34 pg Mean Corpuscular Hemoglobin Concent 36.0 32-36 g/dl Platelet Count 245 130-400 K/uL Mean Platelet Volume 9.2 7.4-10.4 fL Neutrophils (%) (Auto) 85.0 % Lymphocytes (%) (Auto) 6.8 % Monocytes (%) (Auto) 7.5 % Eosinophils (%) (Auto) 0.0 % Basophils (%) (Auto) 0.3 % Neutrophils # (Auto) 8.48 1.4-6.5 K/uL Lymphocytes # (Auto) 0.68 1.2-3.4 K/uL Monocytes # (Auto) 0.75 0.11-0.59 K/uL Eosinophils # (Auto) 0.00 0-0.5 K/uL Basophils # (Auto) 0.03 0-0.2 K/uL RDW Standard Deviation 41.2 36.4-46.3 fL RDW Coefficient of Variation 12.2 11.5-14.5 % Immature Granulocyte % (Auto) 0.4 % Immature Granulocyte # (Auto) 0.04 0.00-0.02 K/uL Prothrombin Time 10.9 9.0-12.0 SECONDS Prothromb Time International Ratio 1.0 0.9-1.1 Activated Partial Thromboplast Time 23.3 21.0-31.0 SECONDS Partial Thromboplastin Ratio 0.9 Sodium Level 139 137 136-145 mmol/L Potassium Level 3.1 3.1 3.5-5.1 mmol/L Chloride Level 101 102 98-107 mmol/L Carbon Dioxide Level 19 26 21-32 mmol/L Anion Gap 19.0 9.1 3-11 mmol/L Blood Urea Nitrogen 5 7 7-18 mg/dl Creatinine 1.12 0.81 0.60-1.40 mg/dl Estimated GFR () 84.1 114.3 Estimated GFR (Non- 72.5 98.7 BUN/Creatinine Ratio 4.1 8.6 10-20 Random Glucose 95 113 70-99 mg/dl Calcium Level 8.7 8.1 8.5-10.1 mg/dl Magnesium Level 1.3 1.7 1.8-2.4 mg/dl Total Bilirubin 1.8 2.2 0.2-1 mg/dl Aspartate Amino Transf (AST/SGOT) 133 74 15-37 U/L Alanine Aminotransferase (ALT/SGPT) 73 51 12-78 U/L Alkaline Phosphatase 77 60 45-117 U/L Total Creatine Kinase 305 39-308 U/L Troponin I < 0.015 0-0.045 ng/ml Total Protein 9.0 7.3 6.4-8.2 gm/dl Albumin 4.0 3.3 3.4-5.0 gm/dl Globulin 5.0 2.5-4.0 gm/dl Albumin/Globulin Ratio 0.8 0.9-2 Thyroid Stimulating Hormone (TSH) 0.563 0.300-4.500 uIu/ml Urine Color DK YELLOW Urine Appearance CLEAR CLEAR Urine pH 5.0 4.5-7.5 Urine Specific [place] 1.023 1.000-1.030 Urine Protein 2+ NEG Urine Glucose (UA) NEG NEG Urine Ketones 3+ NEG Urine Occult Blood 2+ NEG Urine Nitrite NEG NEG Urine Bilirubin NEG NEG Urine Urobilinogen NEG NEG Urine Leukocyte Esterase TRACE NEG Urine WBC (Auto) 1-5 0-5 /hpf Urine RBC (Auto) 0-4 0-4 /hpf Urine Hyaline Casts (Auto) 5-10 0-5 /lpf Urine Epithelial Cells (Auto) 10-20 0-5 /lpf Urine Bacteria (Auto) NEG NEG Urine Opiates Screen POS NEG Urine Methadone, Qualitative NEG NEG Urine Barbiturates NEG NEG Urine Phencyclidine (PCP) Level NEG NEG Ur Amphetamine/Methamphetamine NEG NEG MDMA (Ecstasy) Screen NEG NEG Urine Benzodiazepines Screen NEG NEG Urine Cocaine Metabolite NEG NEG Urine Marijuana (THC) NEG NEG Est Creatinine Clear Calc Drug Dose 116.6 ml/min Phosphorus Level 1.5 2.5-4.9 mg/dl Direct Bilirubin 0.7 0-0.2 mg/dl
[2017-08-17] MEDS: LORAZEPAM 2 MG/ML 1 ML VIAL IV PRN (12:33)
[2017-08-17] MEDS: MoRPHine SULFATE 2 MG/ML CARP IV PRN (19:39)
[2017-08-17] MEDS: GABAPENTIN 600MG Q8H DOSE PO SCH (21:39)
[2017-08-18] VITALS (11 sets, daily range): BP systolic 106–174; BP diastolic 88–121; PULSE 86–90; TEMP 36.6–37; O2SAT 93–97
[2017-08-18] MEDS ORDERED: GABAPENTIN 600MG Q12H DOSE PO SCH
[2017-08-18] MEDS: OXYCODONE HCL IR 5 MG TAB (IMMEDIATE RELEASE) PO PRN ×3 (00:50→16:07)
[2017-08-18] MEDS: MoRPHine SULFATE 2 MG/ML CARP IV PRN ×2 (01:34→05:36)
[2017-08-18] MEDS: LABETALOL HCL IV 5 MG/ML 20ML IV PRN ×2 (01:45→19:52)
[2017-08-18] MEDS: GABAPENTIN 600MG Q8H DOSE PO SCH ×2 (05:33→13:24)
[2017-08-18 06:36] LABS: HEMATOCRIT 40.4 % (42-52); HEMOGLOBIN 14.2 g/dL (14.0-18.0); MEAN CELL VOLUME 93.3 fL (80-100); MEAN CORPUSCULAR HEMOGLOBIN 32.8 pg (25-34); MEAN CORPUSCULAR HGB CONC 35.1 g/dl (32-36); MEAN PLATELET VOLUME 9.9 fL (7.4-10.4); PLATELET COUNT 173 K/uL (130-400); RED CELL DISTRIBUTION WIDTH CV 12.1 % (11.5-14.5); RED CELL DISTRIBUTION WIDTH SD 41.4 fL (36.4-46.3); WHITE BLOOD COUNT 6.22 K/uL (4.8-10.8)
[2017-08-18 06:58] LABS: CREATININE 0.82 mg/dl (0.60-1.40)
[2017-08-18 06:59] LABS: CALCIUM 8.2 mg/dl (8.5-10.1); PHOSPHORUS 1.7 mg/dl (2.5-4.9); POTASSIUM 3.3 mmol/L (3.5-5.1)
[2017-08-18] MEDS: PANTOprazole SOD 40 MG TAB PO SCH ×2 (08:06→21:12)
[2017-08-18] MEDS: LORAZEPAM 2 MG/ML 1 ML VIAL IV PRN (08:06)
[2017-08-18] MEDS: THIAMINE HCL 100 MG TAB PO SCH (08:06)
[2017-08-18] MEDS: CLONIDINE HCL 0.1 MG TAB PO SCH ×2 (08:06→21:11)
[2017-08-18] MEDS: MULTIVITAMIN TAB PO SCH (08:06)
[2017-08-18] MEDS: ASPIRIN 81 MG ECTAB PO SCH (08:07)
[2017-08-18] MEDS: METOPROLOL TARTRATE 25 MG TAB PO SCH (08:07)
[2017-08-18] MEDS ORDERED: POTASSIUM PHOS 3 MMOL/1 ML INFUSION IV STA (08:22)
[2017-08-18] MEDS ORDERED: POTASSIUM PHOSPHATE INJ 30 MMOL in SODIUM CHLORIDE 0.9% 500ML 500 ML IV SCH (09:00)
[2017-08-18] MEDS: METOPROLOL TARTRATE 50 MG TAB PO SCH ×2 (09:22→21:12)
--- NOTE | 2017-08-18 13:26 | Progress Note ---
Internal Med Progress Note Date of Service: Aug 18, 2017. Provider Documentation: SUBJECTIVE: The patient was seen and examined. Complains to have back pain and neck pain. He does have some radiation of pain down the legs. Denies to have significant tremor and lower shortness of breath. Not feeling well this AM -increasing pain and noted to have very high BP NO Chest pain,palpitation OBJECTIVE: Vital Signs-as noted below Exam: General-no distress at rest. No shortness of breath at rest. Eyes-normal ENT-normal Neck-supple, minimal pain 1 neck movement. Lungs-mildly decreased breath sounds bilaterally, no wheezing and/or crackles. Heart-regular, no murmur appreciated. Abdomen-slightly distended, nontender, no masses, bowel sounds present. Extremities-trace edema bilaterally. Neuro-alert awake and oriented 3. Mild generalized weakness. No tremors Lab data as noted below. ASSESSMENT & PLAN: HYPERTENSIVE URGENCY Noted to have very high blood pressure in the emergency room. Was prescribed metoprolol and clonidine when discharged from [facility] in June, but ran out of his meds. Received IV labetalol as needed for blood pressure control. Resumed clonidine and metoprolol. Blood pressure remains mildly elevated this morning. Does not have any complaints of headache and/or chest pain/palpitations. We will continue current medications. BP remains high Will increase BB to 50 mg BID Continue Clonidine ALCOHOL WITHDRAWAL Patient has history of heavy drinking and alcohol withdrawal syndrome. Last alcohol consumption was reportedly 2 days prior to admission. Alcohol withdrawal protocol initiated with gabapentin and lorazepam. Receiving thiamine and folic acid. We will continue IV Ativan as needed. Does not have any significant tremor and/or delirium at this time. No acute withdrawal symptoms ELECTROLYTES IMBALANCE Will replace and recheck Replaced and will recheck in AM DYSARTHRIA / UNSTEADY GAIT / CEREBROVASCULAR DISEASE Chronic neurologic deficits from previous ischemic strokes. Head CT shows old infarcts with reports similar to previous scans at [facility]. Continue aspirin as GI symptoms allow. Symptomatically a lot better and does not have any symptoms suggestive of stroke Unsteady gait could be secondary to effect of alcohol. We will get PT OT evaluation in the hospital. HISTORY OF SEIZURES Suspect history of alcohol withdrawal seizures. Not on anti-convulsants. Seizure precautions. No seizure activities noted in the hospital. H/O ASPIRATION PNEUMONIA Probably multifactorial- cerebrovascular disease, alcoholism, etc. No fever, cough, or pulmonary infiltrates at this time. Aspiration precautions. HISTORY OF PULMONARY NODULES Recent CT chest at [facility] demonstrated small pulmonary nodules. Former smoker. CT follow-up recommended. Referral to Pulmonary Medicine if any concerns. HEPATITIS C Diagnosed at [facility]. HCV RNA = [phone] 05/28/16. Patient has been noncompliant with follow-up. VTE PROPHYLAXIS History of DVT and pulmonary embolism. Warfarin prescribed in the past, but stopped because of noncompliance and ongoing heavy drinking. No anticoagulants at this time due to alcohol abuse + GI symptoms. SCD's. DISPOSITION Expected return to [facility] when medically stable. Vital Signs: Date Time Temp Pulse Resp B/P (MAP) Pulse Ox O2 Delivery O2 Flow Rate FiO2 08/18/17 12:23 36.9 83 150/110 (123) 93 Room Air 08/18/17 12:00 97 Room Air 08/18/17 08:00 97 Room Air 08/18/17 07:39 37.0 90 18 169/120 (136) 97 Room Air 08/18/17 04:00 Room Air 08/18/17 03:40 36.6 88 18 140/98 (112) 96 Room Air 08/18/17 02:20 86 16 106/88 (94) 08/18/17 00:00 Room Air 08/17/17 23:22 37.0 81 20 149/102 (118) 94 Room Air 08/17/17 20:00 Room Air 08/17/17 19:00 37.1 88 10 122/91 (101) 92 Room Air 08/17/17 16:00 94 Room Air 08/17/17 15:36 37.0 85 13 111/89 (96) 93 Room Air Lab Results: Results Past 24 Hours Test 08/18/17 06:10 Range/Units White Blood Count 6.22 4.8-10.8 K/uL Red Blood Count 4.33 4.7-6.1 M/uL Hemoglobin 14.2 14.0-18.0 g/dL Hematocrit 40.4 42-52 % Mean Corpuscular Volume 93.3 80-100 fL Mean Corpuscular Hemoglobin 32.8 25-34 pg Mean Corpuscular Hemoglobin Concent 35.1 32-36 g/dl RDW Standard Deviation 41.4 36.4-46.3 fL RDW Coefficient of Variation 12.1 11.5-14.5 % Platelet Count 173 130-400 K/uL Mean Platelet Volume 9.9 7.4-10.4 fL Sodium Level 137 136-145 mmol/L Potassium Level 3.3 3.5-5.1 mmol/L Chloride Level 103 98-107 mmol/L Carbon Dioxide Level 28 21-32 mmol/L Anion Gap 6.0 3-11 mmol/L Blood Urea Nitrogen 7 7-18 mg/dl Creatinine 0.82 0.60-1.40 mg/dl Est Creatinine Clear Calc Drug Dose 116.9 ml/min Estimated GFR () 113.8 Estimated GFR (Non- 98.2 BUN/Creatinine Ratio 8.5 10-20 Random Glucose 87 70-99 mg/dl Calcium Level 8.2 8.5-10.1 mg/dl Phosphorus Level 1.7 2.5-4.9 mg/dl Magnesium Level 1.9 1.8-2.4 mg/dl
[2017-08-18] MEDS: LORAZEPAM 1 MG TAB PO PRN (13:33)
[2017-08-19] VITALS (9 sets, daily range): BP systolic 119–204; BP diastolic 91–161; PULSE 68–92; TEMP 36.5–37.3; O2SAT 94–96
[2017-08-19] MEDS: GABAPENTIN 600MG Q12H DOSE PO SCH ×2 (00:10→11:34)
[2017-08-19] MEDS: OXYCODONE HCL IR 5 MG TAB (IMMEDIATE RELEASE) PO PRN ×3 (00:11→16:16)
[2017-08-19] MEDS: LABETALOL HCL IV 5 MG/ML 20ML IV PRN ×2 (00:13→15:36)
[2017-08-19 06:26] LABS: CREATININE 0.81 mg/dl (0.60-1.40); POTASSIUM 3.2 mmol/L (3.5-5.1)
[2017-08-19 06:27] LABS: PHOSPHORUS 2.6 mg/dl (2.5-4.9)
[2017-08-19] MEDS: ASPIRIN 81 MG ECTAB PO SCH (07:34)
[2017-08-19] MEDS: CLONIDINE HCL 0.1 MG TAB PO SCH ×2 (07:34→21:23)
[2017-08-19] MEDS: METOPROLOL TARTRATE 50 MG TAB PO SCH ×2 (07:35→21:24)
[2017-08-19] MEDS: MULTIVITAMIN TAB PO SCH (07:35)
[2017-08-19] MEDS: PANTOprazole SOD 40 MG TAB PO SCH ×2 (07:36→21:24)
[2017-08-19] MEDS: THIAMINE HCL 100 MG TAB PO SCH (07:36)
[2017-08-19] MEDS ORDERED: GABAPENTIN 600MG X1 DOSE PO SCH (12:00)
[2017-08-19] MEDS: CLONIDINE HCL 0.1 MG TAB PO PRN (13:23)
[2017-08-19] MEDS ORDERED: POTASSIUM CHLORIDE 20 MEQ TABCR PO STA (15:28)
--- NOTE | 2017-08-19 15:28 | Progress Note ---
Internal Med Progress Note Date of Service: Aug 19, 2017. Provider Documentation: SUBJECTIVE: resting comfortably afebrile says having back pain which is chronic no shaking says having diarrhea tolerating liquid diet and requests to advance it OBJECTIVE: Vital Signs-as noted below Exam: General-alert and oriented. Not in distress ENT-Normal hearing Neck-no neck masses Lungs-cta b/l no wheezing or crackles Heart-S1 and S2 heard regular rate and rhythm no murmurs Abdomen-Soft bowel sounds present non tender no distension Extremities-no edema no erythema Neuro-alert and awake moves extremities Lab data as noted below. ASSESSMENT & PLAN: HYPERTENSIVE URGENCY Was prescribed metoprolol and clonidine when discharged from [facility] in June, but ran out of his meds. patient says he was taking clonidine twice daily currently on Lopressor 50m bid and clonidine 0.1mg bid alcohols withdrawal playing role? clonidine prn will monitor ALCOHOL WITHDRAWAL Patient has history of heavy drinking and alcohol withdrawal syndrome. seems last drink 2 days prior to admission started on gabapentin with Ativan alcohol withdrawal protocol thiamine, folic acid and mvi continue to monitor ELECTROLYTES IMBALANCE Will replace DYSARTHRIA / UNSTEADY GAIT / CEREBROVASCULAR DISEASE Chronic neurologic deficits from previous hx of ischemic strokes. Head CT shows old infarcts with reports similar to previous scans at [facility]. on aspirin could be from alcoholism pt/ot HISTORY OF SEIZURES Suspected history of alcohol withdrawal seizures. Not on medications Seizure precautions. close monitor H/O ASPIRATION PNEUMONIA Probably multifactorial- cerebrovascular disease, alcoholism, etc. Aspiration precautions. stable currently. HISTORY OF PULMONARY NODULES Recent CT chest at [facility] demonstrated small pulmonary nodules. Former smoker. CT follow-up recommended. followup with pcp/pulmonary HEPATITIS C Diagnosed at [facility]. HCV RNA = [id number] 05/28/16. says he is planning for treatment VTE PROPHYLAXIS History of DVT and pulmonary embolism. Coumadin was stopped because of noncompliance and ongoing heavy drinking. SCD's for now. DISPOSITION Expected return to [facility] when medically stable. Vital Signs: Date Time Temp Pulse Resp B/P (MAP) Pulse Ox O2 Delivery O2 Flow Rate FiO2 08/19/17 12:08 Room Air 08/19/17 11:56 36.8 90 22 165/120 (135) 95 Room Air 08/19/17 09:00 Room Air 08/19/17 07:36 37.0 83 24 204/161 (175) 94 Room Air 08/19/17 04:00 Room Air 08/19/17 03:31 36.7 89 18 119/93 (102) 95 Room Air 08/19/17 01:04 149/98 (115) 08/19/17 00:01 36.5 92 18 150/106 (121) 96 Room Air 08/18/17 23:59 Room Air 08/18/17 22:09 143/105 (118) 08/18/17 20:00 166/117 (133) 08/18/17 20:00 97 Room Air 08/18/17 18:45 36.8 89 18 174/121 (138) 97 Room Air 08/18/17 16:00 93 Room Air Lab Results: Results Past 24 Hours Test 08/19/17 05:06 08/19/17 11:42 Range/Units Sodium Level 138 136-145 mmol/L Potassium Level 3.2 3.5-5.1 mmol/L Chloride Level 105 98-107 mmol/L Carbon Dioxide Level 25 21-32 mmol/L Anion Gap 8.0 3-11 mmol/L Blood Urea Nitrogen 4 7-18 mg/dl Creatinine 0.81 0.60-1.40 mg/dl Est Creatinine Clear Calc Drug Dose 118.3 ml/min Estimated GFR () 114.3 Estimated GFR (Non- 98.7 BUN/Creatinine Ratio 4.8 10-20 Random Glucose 113 70-99 mg/dl Calcium Level 8.0 8.5-10.1 mg/dl Phosphorus Level 2.6 2.5-4.9 mg/dl Magnesium Level 1.6 1.8-2.4 mg/dl Microbiology Results 08/19/17 C.difficile Toxin B Gene (PCR) - Final, Complete No C. difficile toxin B gene detected 08/19/17 Shiga Toxin Test, Received Pending 08/19/17 Stool Culture, Received Pending
[2017-08-19] MEDS: LOPERAMIDE HCL 2 MG CAP PO PRN (15:43)
[2017-08-19] MEDS: ONDANSETRON INJ 2 MG/ML 2 ML VIAL IV PRN (15:43)
[2017-08-19] MEDS ORDERED: MAGNESIUM SULFATE 1GM / D5W 1 GM in PREMIXED IN D5W 100 ML IV ONE (16:00)
[2017-08-19] MEDS ORDERED: LORAZEPAM 0.5 MG TAB PO ONE (20:45)
[2017-08-19] MEDS: MAGNESIUM CHLORIDE 64MG DELAYED REL TAB PO SCH (21:25)
[2017-08-20] VITALS (8 sets, daily range): BP systolic 118–175; BP diastolic 89–114; PULSE 69–81; TEMP 35.7–37.1; O2SAT 94–96
[2017-08-20] MEDS: OXYCODONE HCL IR 5 MG TAB (IMMEDIATE RELEASE) PO PRN ×3 (00:25→17:01)
[2017-08-20] MEDS: LABETALOL HCL IV 5 MG/ML 20ML IV PRN (00:27)
[2017-08-20] MEDS: ONDANSETRON INJ 2 MG/ML 2 ML VIAL IV PRN ×2 (04:20→12:16)
[2017-08-20] MEDS: CLONIDINE HCL 0.1 MG TAB PO PRN (04:24)
[2017-08-20 07:08] LABS: BASO % 0.7 %; BASO ABS # 0.05 K/uL (0-0.2); EOS % 3.5 %; EOS ABS # 0.26 K/uL (0-0.5); HEMOGLOBIN 13.9 g/dL (14.0-18.0); IG# 0.02 K/uL (0.00-0.02); LYMPH % 26.2 %; LYMPH ABS # 1.94 K/uL (1.2-3.4); MEAN PLATELET VOLUME 9.6 fL (7.4-10.4); MONO % 15.4 %; MONO ABS # 1.14 K/uL (0.11-0.59); NEUT % 53.9 %; PLATELET COUNT 205 K/uL (130-400); RED CELL DISTRIBUTION WIDTH SD 40.5 fL (36.4-46.3); WHITE BLOOD COUNT 7.41 K/uL (4.8-10.8)
[2017-08-20 07:09] LABS: CALCIUM 8.4 mg/dl (8.5-10.1); CREATININE 0.87 mg/dl (0.60-1.40); POTASSIUM 3.7 mmol/L (3.5-5.1)
[2017-08-20 07:12] LABS: MEAN CORPUSCULAR HGB CONC 34.8 g/dl (32-36)
[2017-08-20] MEDS: MAGNESIUM CHLORIDE 64MG DELAYED REL TAB PO SCH ×2 (07:38→20:50)
[2017-08-20] MEDS: ASPIRIN 81 MG ECTAB PO SCH (07:38)
[2017-08-20] MEDS: THIAMINE HCL 100 MG TAB PO SCH (07:38)
[2017-08-20] MEDS: PANTOprazole SOD 40 MG TAB PO SCH ×2 (07:38→20:50)
[2017-08-20] MEDS: MULTIVITAMIN TAB PO SCH (07:38)
[2017-08-20] MEDS: METOPROLOL TARTRATE 50 MG TAB PO SCH ×2 (07:39→20:50)
[2017-08-20] MEDS: CLONIDINE HCL 0.1 MG TAB PO SCH ×2 (07:42→20:50)
[2017-08-20] MEDS ORDERED: OPTIRAY 320 IV PRN (09:45)
--- NOTE | 2017-08-20 11:38 | DIAGNOSTIC IMAGING REPORT ---
ABD/PELVIS NO IV OR ORAL CONT CT DOSE: 547.07 mGy.cm HISTORY: Pain. Nausea. n/v and abdominal pain. hx of hep c TECHNIQUE: Multiaxial CT images of the abdomen and pelvis were performed without contrast. A dose lowering technique was utilized adhering to the principles of ALARA. Contrast was not administered due to the patient's stated prior anaphylactic reaction COMPARISON STUDY: None. FINDINGS: The lung bases are clear. The unenhanced liver, spleen, gallbladder, pancreas, kidneys, and adrenal glands are within normal limits. Nonobstructive bowel pattern. Diffuse colonic diverticulosis. No evidence for acute diverticulitis. Moderate atherosclerotic change abdominal aorta. No evidence for aneurysm. Operative changes of the lumbar spine from L3 through L5 consistent with laminectomy and fusion. IMPRESSION: No significant abnormality identified within the abdomen or pelvis. Chronic colonic diverticulosis. Postoperative changes to the lumbar spine. The above report was generated using voice recognition software. It may contain grammatical, syntax or spelling errors. Electronically signed by: Jorden Hull M.D. 08/20/2017 11:37 AM Dictated Date/Time: 08/20/2017 11:11 AM
[2017-08-20] MEDS ORDERED: GABAPENTIN 600MG X1 DOSE PO SCH (12:00)
[2017-08-20] MEDS: LOPERAMIDE HCL 2 MG CAP PO PRN (12:15)
[2017-08-20] MEDS ORDERED: ALUMINUM/MAGNESIUM/SIMETH (MAALOX MAX) 30 ML UDC PO PRN (13:30)
[2017-08-20] MEDS ORDERED: ALUMINUM/MAGNESIUM SUSP 30 ML UDC ONE (13:30)
--- NOTE | 2017-08-20 14:11 | Gastrointestinal Consultation ---
Gastrointestinal Consultation Date of Consultation: Aug 20, 2017 Attending Physician: Dr. Valenzuela Consulting Physician: Dr. Rio Castellon Reason for Consultation: Pain at prior PEG tube site, consult per pt request History of Present Illness Patient is a 57 year old male pt of Dr. Woodson with a hx of alcohol abuse, CVA, aspiration pneumonia, HTN, DVT/PE. Apparently [facility]15 [facility] or 08/16. There, he appeared ill and was brought to [facility]. On arrival, he was tachycardic and reports his most recent alcohol intake was 2 days prior. Today, he began to c/o abdominal pain at a prior PEG tube site and asks for an endoscopy. Non contrast CT done a few hours ago was normal. . Past Medical/Surgical History Medical Problems: (1) Hypertension Status: Chronic (2) Medication withdrawal Status: Acute (3) Stroke-like symptoms Status: Acute (4) Tachycardia Status: Acute Past Medical History: 1. HTN 2. Increased alcohol intake. 3. Hep C 4. Anemia 5. CVAs 6. COPD 7. DVT/PE 8. Difficult intubation 9. Pulmonary nodules 10. Seizures Past Surgical History: 1. Lumbar surgery 2. Tracheostomy . Family History Heart disease FATHER BROTHER Social History Smoking Status: Former Smoker Alcohol Use: other (daily) Occupation Status: other (prisoner) Allergies Coded Allergies: Shellfish (Verified Allergy, Severe, hives/swelling of the throat, 08/16/17 ) Current Medications Home Meds and Scripts Medications Dose Route/Sig Max Daily Dose Days Date Category Roxicodone Ir (Oxycodone HCl) 5 Mg Tab 5 Mg PO Q8H PRN 08/16/17 Reported Prilosec (Omeprazole) 20 Mg Capcr 20 Mg PO DAILY 08/16/17 Reported Aspirin Chewable (Aspirin) 81 Mg Chew 81 Mg PO DAILY 08/16/17 Reported Vitamin B-1 (Thiamine Hcl) 50 Mg Cap 100 Mg PO DAILY 08/16/17 Reported Klonopin (Clonazepam) 1 Mg Tab 1 Mg PO QPM 08/16/17 Reported Catapres (Clonidine Hcl) 0.1 Mg Tab 0.1 Mg PO BID 08/16/17 Reported Review of Systems Constitutional: No fever, No chills, No sweats, No weight loss, No weakness Eyes: No eye pain, No redness ENT: No sore throat, No trouble swallowing, No pain on swallowing Respiratory: No cough, No wheezing, No shortness of breath, No dyspnea on exertion Cardiac: No chest pain, No edema, No palpitations Abdomen: + see HPI, + pain, + GI bleeding (reports blood in his stools a week ago.), No nausea, No vomiting, No diarrhea Musculoskeletal: No joint pain Male : + dysuria, + hematuria Neuro: No memory loss, No weakness, No numbness/tingling, No vertigo, No balance problems Psych: No depression symptoms, No anxiety, No insomnia Heme: No abnormal bleeding/bruising, No night sweats Endo: + fatigue, No excessive thirst, No excessive urination Skin: No rash, No itch, No new/changing skin lesions, No jaundice Physical Exam Date Time Temp Pulse Resp B/P (MAP) Pulse Ox O2 Delivery O2 Flow Rate FiO2 08/20/17 12:00 Room Air 08/20/17 10:56 35.7 74 16 157/98 (117) 96 Room Air 08/20/17 08:00 Room Air 08/20/17 07:52 36.5 75 18 175/114 (134) 94 Room Air 08/20/17 05:28 156/96 (116) 08/20/17 04:25 81 160/108 (125) 08/20/17 04:00 Room Air 08/20/17 03:25 36.6 81 18 118/94 (102) 95 Room Air 08/20/17 00:01 Room Air 08/19/17 23:44 36.7 68 20 148/103 (118) 96 Room Air 160/107 (124) 08/19/17 20:00 37.3 79 18 145/91 (109) 94 Room Air 08/19/17 20:00 94 Room Air 08/19/17 16:00 95 Room Air 08/19/17 15:15 37.2 71 18 160/101 (120) 95 Room Air 162/105 (124) General Appearance: no apparent distress Eyes: normal inspection, EOMI ENT: + pertinent finding (poor dentition) Neck: supple, no adenopathy, thyroid normal, no JVD Respiratory/Chest: chest non-tender, lungs clear, normal breath sounds, no accessory muscle use Cardiovascular: regular rate, rhythm, no JVD, no murmur Abdomen: normal bowel sounds, soft, no organomegaly, + tenderness (moderate upper abdomen tenderness) Extremities: normal inspection, no pedal edema, normal capillary refill Neurologic/Psych: alert, normal mood/affect, oriented x 3 Skin: normal color, no jaundice, warm/dry, no rash Laboratory Results Last 24 Hours Test 08/20/17 05:53 08/20/17 06:56 08/20/17 12:02 Sodium Level 136 mmol/L Potassium Level 3.7 mmol/L Chloride Level 103 mmol/L Carbon Dioxide Level 26 mmol/L Anion Gap 7.0 mmol/L Blood Urea Nitrogen 6 mg/dl Creatinine 0.87 mg/dl Est Creatinine Clear Calc Drug Dose 109.1 ml/min Estimated GFR () 111.0 Estimated GFR (Non- 95.8 BUN/Creatinine Ratio 6.3 Random Glucose 96 mg/dl Calcium Level 8.4 mg/dl Phosphorus Level 3.0 mg/dl Magnesium Level 1.8 mg/dl White Blood Count 7.41 K/uL Red Blood Count 4.35 M/uL Hemoglobin 13.9 g/dL Hematocrit 40.0 % Mean Corpuscular Volume 92.0 fL Mean Corpuscular Hemoglobin 32.0 pg Mean Corpuscular Hemoglobin Concent 34.8 g/dl Platelet Count 205 K/uL Mean Platelet Volume 9.6 fL Neutrophils (%) (Auto) 53.9 % Lymphocytes (%) (Auto) 26.2 % Monocytes (%) (Auto) 15.4 % Eosinophils (%) (Auto) 3.5 % Basophils (%) (Auto) 0.7 % Neutrophils # (Auto) 4.00 K/uL Lymphocytes # (Auto) 1.94 K/uL Monocytes # (Auto) 1.14 K/uL Eosinophils # (Auto) 0.26 K/uL Basophils # (Auto) 0.05 K/uL RDW Standard Deviation 40.5 fL RDW Coefficient of Variation 12.0 % Immature Granulocyte % (Auto) 0.3 % Immature Granulocyte # (Auto) 0.02 K/uL Troponin I < 0.015 ng/ml Impression Patient is a 57 year old male with abdominal pain at the site of a prior PEG tube. This likely represents alcoholic gastritis or mild adhesive disease. Also considered less likely is ulcer disease. Plan Recommend OP EGD if pain persists, however, his c/o is not convincing. when he was saying that his pain was at the location of the prior PEG, he was placing his hand about 2-3 inches above the prior PEG incision. I saw and evaluated the patient with Ms. Main. We are asked to evaluate pain at a prior peg site. Of note this PEG was removed in 2009. the patient was admitted with HTN and alcohol abuse. PE: NAD No icterus Impression: patient with nonspecific abdominal pain. Would suggest a trial of a PPI for 4 to 6 weeks and upper endoscopy if the symptoms persist. Please call with any questions or concerns.
[2017-08-20 15:12] LABS: ALBUMIN 3.2 gm/dl (3.4-5.0); TOTAL PROTEIN 7.5 gm/dl (6.4-8.2)
--- NOTE | 2017-08-20 17:07 | Progress Note ---
Internal Med Progress Note Date of Service: Aug 20, 2017. Provider Documentation: SUBJECTIVE: says he is having chest pain at one sot on left side of chest complains of abdominal pain pointing to right side says he vomited twice and having diarrhea denies sob afebrile ate breakfast OBJECTIVE: Vital Signs-as noted below Exam: General-alert and oriented. Not in distress ENT-Normal hearing Neck-no neck masses Lungs-cta b/l no wheezing or crackles Heart-S1 and S2 heard regular rate and rhythm no murmurs Abdomen-Soft bowel sounds present mild diffuse tender no distension Extremities-no edema no erythema Neuro-alert and awake moves extremities Lab data as noted below. ASSESSMENT & PLAN: HYPERTENSIVE URGENCY Was prescribed metoprolol and clonidine when discharged from [facility] in June, but ran out of his meds. patient says he was taking clonidine twice daily currently on Lopressor 50m bid and clonidine 0.1mg bid alcohols withdrawal playing role? clonidine prn continue same will monitor ALCOHOL WITHDRAWAL Patient has history of heavy drinking and alcohol withdrawal syndrome. seems last drink 2 days prior to admission started on gabapentin with Ativan alcohol withdrawal protocol thiamine, folic acid and mvi seems stable continue to monitor ELECTROLYTES IMBALANCE Will replace Abdominal pain n/v diarrhea c diff negative ct scan unremarkable Maalox prn patient wants to see GI as he thinks pain from his previous peg tube site Seen by Gi and appreciate inputs Chest pain ekg unremarkable troponin negative DYSARTHRIA / UNSTEADY GAIT / CEREBROVASCULAR DISEASE Chronic neurologic deficits from previous hx of ischemic strokes. Head CT shows old infarcts with reports similar to previous scans at [facility]. on aspirin could be from alcoholism pt/ot HISTORY OF SEIZURES Suspected history of alcohol withdrawal seizures. Not on medications Seizure precautions. close monitor H/O ASPIRATION PNEUMONIA Probably multifactorial- cerebrovascular disease, alcoholism, etc. Aspiration precautions. stable currently. HISTORY OF PULMONARY NODULES Recent CT chest at [facility] demonstrated small pulmonary nodules. Former smoker. CT follow-up recommended. followup with pcp/pulmonary HEPATITIS C Diagnosed at [facility]. HCV RNA = [id number] 05/28/16. says he is planning for treatment VTE PROPHYLAXIS History of DVT and pulmonary embolism. Coumadin was stopped because of noncompliance and ongoing heavy drinking. SCD's for now. DISPOSITION Expected return to [facility] when medically stable. possible d/c in 1-2 days Vital Signs: Date Time Temp Pulse Resp B/P (MAP) Pulse Ox O2 Delivery O2 Flow Rate FiO2 08/20/17 15:04 36.9 69 20 154/93 (113) 95 Room Air 08/20/17 12:00 Room Air 08/20/17 10:56 35.7 74 16 157/98 (117) 96 Room Air 08/20/17 08:00 Room Air 08/20/17 07:52 36.5 75 18 175/114 (134) 94 Room Air 08/20/17 05:28 156/96 (116) 08/20/17 04:25 81 160/108 (125) 08/20/17 04:00 Room Air 08/20/17 03:25 36.6 81 18 118/94 (102) 95 Room Air 08/20/17 00:01 Room Air 08/19/17 23:44 36.7 68 20 148/103 (118) 96 Room Air 160/107 (124) 08/19/17 20:00 37.3 79 18 145/91 (109) 94 Room Air 08/19/17 20:00 94 Room Air Lab Results: Results Past 24 Hours Test 08/20/17 05:53 08/20/17 06:56 08/20/17 12:02 08/20/17 14:20 Range/Units Sodium Level 136 136-145 mmol/L Potassium Level 3.7 3.5-5.1 mmol/L Chloride Level 103 98-107 mmol/L Carbon Dioxide Level 26 21-32 mmol/L Anion Gap 7.0 3-11 mmol/L Blood Urea Nitrogen 6 7-18 mg/dl Creatinine 0.87 0.60-1.40 mg/dl Est Creatinine Clear Calc Drug Dose 109.1 ml/min Estimated GFR () 111.0 Estimated GFR (Non- 95.8 BUN/Creatinine Ratio 6.3 10-20 Random Glucose 96 70-99 mg/dl Calcium Level 8.4 8.5-10.1 mg/dl Phosphorus Level 3.0 2.5-4.9 mg/dl Magnesium Level 1.8 1.8-2.4 mg/dl White Blood Count 7.41 4.8-10.8 K/uL Red Blood Count 4.35 4.7-6.1 M/uL Hemoglobin 13.9 14.0-18.0 g/dL Hematocrit 40.0 42-52 % Mean Corpuscular Volume 92.0 80-100 fL Mean Corpuscular Hemoglobin 32.0 25-34 pg Mean Corpuscular Hemoglobin Concent 34.8 32-36 g/dl Platelet Count 205 130-400 K/uL Mean Platelet Volume 9.6 7.4-10.4 fL Neutrophils (%) (Auto) 53.9 % Lymphocytes (%) (Auto) 26.2 % Monocytes (%) (Auto) 15.4 % Eosinophils (%) (Auto) 3.5 % Basophils (%) (Auto) 0.7 % Neutrophils # (Auto) 4.00 1.4-6.5 K/uL Lymphocytes # (Auto) 1.94 1.2-3.4 K/uL Monocytes # (Auto) 1.14 0.11-0.59 K/uL Eosinophils # (Auto) 0.26 0-0.5 K/uL Basophils # (Auto) 0.05 0-0.2 K/uL RDW Standard Deviation 40.5 36.4-46.3 fL RDW Coefficient of Variation 12.0 11.5-14.5 % Immature Granulocyte % (Auto) 0.3 % Immature Granulocyte # (Auto) 0.02 0.00-0.02 K/uL Troponin I < 0.015 0-0.045 ng/ml Total Bilirubin 1.6 0.2-1 mg/dl Direct Bilirubin 0.7 0-0.2 mg/dl Aspartate Amino Transf (AST/SGOT) 71 15-37 U/L Alanine Aminotransferase (ALT/SGPT) 59 12-78 U/L Alkaline Phosphatase 58 45-117 U/L Total Protein 7.5 6.4-8.2 gm/dl Albumin 3.2 3.4-5.0 gm/dl Lipase 173 73-393 U/L
[2017-08-21] MEDS: OXYCODONE HCL IR 5 MG TAB (IMMEDIATE RELEASE) PO PRN ×3 (01:15→17:06)
[2017-08-21 05:44] VITALS: BP 159/104; PULSE 76; TEMP 36.8; O2SAT 95
[2017-08-21 06:15] LABS: BASO % 0.6 %; BASO ABS # 0.04 K/uL (0-0.2); EOS % 4.1 %; EOS ABS # 0.28 K/uL (0-0.5); HEMATOCRIT 45.1 % (42-52); HEMOGLOBIN 15.8 g/dL (14.0-18.0); IG# 0.01 K/uL (0.00-0.02); LYMPH % 25.9 %; LYMPH ABS # 1.79 K/uL (1.2-3.4); MEAN CELL VOLUME 92.6 fL (80-100); MEAN CORPUSCULAR HEMOGLOBIN 32.4 pg (25-34); MONO % 19.4 %; MONO ABS # 1.34 K/uL (0.11-0.59); NEUT % 49.9 %; NEUT ABS # 3.44 K/uL (1.4-6.5); PLATELET COUNT 231 K/uL (130-400); RED CELL DISTRIBUTION WIDTH CV 12.1 % (11.5-14.5); RED CELL DISTRIBUTION WIDTH SD 40.5 fL (36.4-46.3)
[2017-08-21 06:42] LABS: CALCIUM 9.1 mg/dl (8.5-10.1); CREATININE 0.91 mg/dl (0.60-1.40)
[2017-08-21 06:43] LABS: PHOSPHORUS 2.9 mg/dl (2.5-4.9)
[2017-08-21 07:42] VITALS: BP 145/103; PULSE 76; TEMP 36.5; O2SAT 93
[2017-08-21] MEDS: METOPROLOL TARTRATE 50 MG TAB PO SCH ×2 (09:01→20:28)
[2017-08-21] MEDS: THIAMINE HCL 100 MG TAB PO SCH (09:01)
[2017-08-21] MEDS: MAGNESIUM CHLORIDE 64MG DELAYED REL TAB PO SCH ×2 (09:01→20:27)
[2017-08-21] MEDS: CLONIDINE HCL 0.1 MG TAB PO SCH ×2 (09:01→20:27)
[2017-08-21] MEDS: MULTIVITAMIN TAB PO SCH (09:02)
[2017-08-21] MEDS: PANTOprazole SOD 40 MG TAB PO SCH ×2 (09:02→20:28)
[2017-08-21] MEDS: ASPIRIN 81 MG ECTAB PO SCH (09:02)
--- NOTE | 2017-08-21 10:06 | Progress Note ---
Internal Med Progress Note Date of Service: Aug 21, 2017. Provider Documentation: SUBJECTIVE: says he is having pain in his abdomen and requesting fo egd still has diarrhea and nausea no sob afebrile hemodynamics stable OBJECTIVE: Vital Signs-as noted below Exam: General-alert and oriented. Not in distress ENT-Normal hearing Neck-no neck masses Lungs-cta b/l no wheezing or crackles Heart-S1 and S2 heard regular rate and rhythm no murmurs Abdomen-Soft bowel sounds present mild diffuse tender no distension Extremities-no edema no erythema Neuro-alert and awake moves extremities Lab data as noted below. ASSESSMENT & PLAN: HYPERTENSIVE URGENCY Was prescribed metoprolol and clonidine when discharged from [facility] in June, but ran out of his meds. patient says he was taking clonidine twice daily currently on Lopressor 50m bid and clonidine 0.1mg bid alcohols withdrawal playing role? clonidine prn better controlled today continue same will monitor ALCOHOL WITHDRAWAL Patient has history of heavy drinking and alcohol withdrawal syndrome. seems last drink 2 days prior to admission started on gabapentin with Ativan alcohol withdrawal protocol thiamine, folic acid and mvi seems stable continue to monitor ELECTROLYTES IMBALANCE Will replace Abdominal pain n/v diarrhea c diff negative ct scan unremarkable Maalox prn patient wants to see GI as he thinks pain from his previous peg tube site Seen by Gi and appreciate inputs request egd? Chest pain ekg unremarkable troponin negative DYSARTHRIA / UNSTEADY GAIT / CEREBROVASCULAR DISEASE Chronic neurologic deficits from previous hx of ischemic strokes. Head CT shows old infarcts with reports similar to previous scans at [facility]. on aspirin could be from alcoholism pt/ot Stable conditions: HISTORY OF SEIZURES Suspected history of alcohol withdrawal seizures. Not on medications Seizure precautions. close monitor H/O ASPIRATION PNEUMONIA Probably multifactorial- cerebrovascular disease, alcoholism, etc. Aspiration precautions. stable currently. HISTORY OF PULMONARY NODULES Recent CT chest at [facility] demonstrated small pulmonary nodules. Former smoker. CT follow-up recommended. followup with pcp/pulmonary HEPATITIS C Diagnosed at [facility]. HCV RNA = [id number] 05/28/16. says he is planning for treatment VTE PROPHYLAXIS History of DVT and pulmonary embolism. Coumadin was stopped because of noncompliance and ongoing heavy drinking. SCD's for now. DISPOSITION Expected return to [facility] when medically stable. possible d/c in am Vital Signs: Date Time Temp Pulse Resp B/P (MAP) Pulse Ox O2 Delivery O2 Flow Rate FiO2 3/15/18 08:00 Room Air 08/21/17 07:42 36.5 76 18 145/103 (117) 93 Room Air 08/21/17 05:44 36.8 76 18 159/104 (122) 95 Room Air 08/21/17 04:00 Room Air 08/21/17 00:00 Room Air 08/20/17 23:23 37.1 70 21 149/105 (120) 95 08/20/17 20:00 Room Air 08/20/17 18:55 37.0 72 20 136/89 (105) 94 Room Air 08/20/17 16:00 Room Air 08/20/17 15:04 36.9 69 20 154/93 (113) 95 Room Air 08/20/17 12:00 Room Air 08/20/17 10:56 35.7 74 16 157/98 (117) 96 Room Air Lab Results: Results Past 24 Hours Test 08/20/17 12:02 08/20/17 14:20 08/21/17 05:52 Range/Units Troponin I < 0.015 0-0.045 ng/ml Total Bilirubin 1.6 0.2-1 mg/dl Direct Bilirubin 0.7 0-0.2 mg/dl Aspartate Amino Transf (AST/SGOT) 71 15-37 U/L Alanine Aminotransferase (ALT/SGPT) 59 12-78 U/L Alkaline Phosphatase 58 45-117 U/L Total Protein 7.5 6.4-8.2 gm/dl Albumin 3.2 3.4-5.0 gm/dl Lipase 173 73-393 U/L White Blood Count 6.90 4.8-10.8 K/uL Red Blood Count 4.87 4.7-6.1 M/uL Hemoglobin 15.8 14.0-18.0 g/dL Hematocrit 45.1 42-52 % Mean Corpuscular Volume 92.6 80-100 fL Mean Corpuscular Hemoglobin 32.4 25-34 pg Mean Corpuscular Hemoglobin Concent 35.0 32-36 g/dl Platelet Count 231 130-400 K/uL Mean Platelet Volume 10.0 7.4-10.4 fL Neutrophils (%) (Auto) 49.9 % Lymphocytes (%) (Auto) 25.9 % Monocytes (%) (Auto) 19.4 % Eosinophils (%) (Auto) 4.1 % Basophils (%) (Auto) 0.6 % Neutrophils # (Auto) 3.44 1.4-6.5 K/uL Lymphocytes # (Auto) 1.79 1.2-3.4 K/uL Monocytes # (Auto) 1.34 0.11-0.59 K/uL Eosinophils # (Auto) 0.28 0-0.5 K/uL Basophils # (Auto) 0.04 0-0.2 K/uL RDW Standard Deviation 40.5 36.4-46.3 fL RDW Coefficient of Variation 12.1 11.5-14.5 % Immature Granulocyte % (Auto) 0.1 % Immature Granulocyte # (Auto) 0.01 0.00-0.02 K/uL Sodium Level 135 136-145 mmol/L Potassium Level 4.0 3.5-5.1 mmol/L Chloride Level 101 98-107 mmol/L Carbon Dioxide Level 26 21-32 mmol/L Anion Gap 8.0 3-11 mmol/L Blood Urea Nitrogen 7 7-18 mg/dl Creatinine 0.91 0.60-1.40 mg/dl Est Creatinine Clear Calc Drug Dose 104.7 ml/min Estimated GFR () 108.0 Estimated GFR (Non- 93.2 BUN/Creatinine Ratio 7.3 10-20 Random Glucose 87 70-99 mg/dl Calcium Level 9.1 8.5-10.1 mg/dl Phosphorus Level 2.9 2.5-4.9 mg/dl Magnesium Level 1.9 1.8-2.4 mg/dl
[2017-08-21] MEDS: ONDANSETRON INJ 2 MG/ML 2 ML VIAL IV PRN (11:05)
[2017-08-21 12:15] VITALS: BP_SYST 129; BP_SYST 143; BP_DIAS 101; BP_DIAS 102; PULSE 72; TEMP 36.9; O2SAT 96
[2017-08-21] MEDS: LOPERAMIDE HCL 2 MG CAP PO PRN (12:39)
[2017-08-21 16:21] VITALS: BP 154/109; PULSE 77; TEMP 36.9; O2SAT 87
[2017-08-21 19:04] VITALS: BP 141/100; PULSE 67; TEMP 36.9; O2SAT 93
[2017-08-21 23:23] VITALS: BP_SYST 157; BP_SYST 173; BP_DIAS 104; BP_DIAS 113; PULSE 73; TEMP 36.8; O2SAT 94
[2017-08-22] MEDS: OXYCODONE HCL IR 5 MG TAB (IMMEDIATE RELEASE) PO PRN ×2 (01:10→08:34)
[2017-08-22] MEDS: CLONIDINE HCL 0.1 MG TAB PO PRN (01:11)
[2017-08-22] MEDS: ONDANSETRON INJ 2 MG/ML 2 ML VIAL IV PRN (03:31)
[2017-08-22 03:45] VITALS: BP 146/97; PULSE 67; TEMP 36.9; O2SAT 94
[2017-08-22 06:20] LABS: BASO % 0.3 %; BASO ABS # 0.03 K/uL (0-0.2); EOS % 4.8 %; EOS ABS # 0.42 K/uL (0-0.5); HEMATOCRIT 42.5 % (42-52); IG# 0.03 K/uL (0.00-0.02); LYMPH % 21.2 %; LYMPH ABS # 1.87 K/uL (1.2-3.4); MEAN CELL VOLUME 92.2 fL (80-100); MEAN CORPUSCULAR HEMOGLOBIN 32.5 pg (25-34); MEAN CORPUSCULAR HGB CONC 35.3 g/dl (32-36); MEAN PLATELET VOLUME 9.8 fL (7.4-10.4); MONO % 17.3 %; MONO ABS # 1.52 K/uL (0.11-0.59); NEUT % 56.1 %; NEUT ABS # 4.94 K/uL (1.4-6.5); PLATELET COUNT 227 K/uL (130-400); RED CELL DISTRIBUTION WIDTH CV 12.2 % (11.5-14.5); RED CELL DISTRIBUTION WIDTH SD 40.8 fL (36.4-46.3); WHITE BLOOD COUNT 8.81 K/uL (4.8-10.8)
[2017-08-22 06:48] LABS: CALCIUM 8.8 mg/dl (8.5-10.1); CREATININE 0.96 mg/dl (0.60-1.40); PHOSPHORUS 3.2 mg/dl (2.5-4.9); POTASSIUM 3.8 mmol/L (3.5-5.1)
[2017-08-22 07:49] VITALS: BP 148/96; PULSE 67; TEMP 36.6; O2SAT 93
[2017-08-22] MEDS: ASPIRIN 81 MG ECTAB PO SCH (08:34)
[2017-08-22] MEDS: MAGNESIUM CHLORIDE 64MG DELAYED REL TAB PO SCH (08:35)
[2017-08-22] MEDS: METOPROLOL TARTRATE 50 MG TAB PO SCH (08:35)
[2017-08-22] MEDS: THIAMINE HCL 100 MG TAB PO SCH (08:36)
[2017-08-22] MEDS: MULTIVITAMIN TAB PO SCH (08:36)
[2017-08-22] MEDS: PANTOprazole SOD 40 MG TAB PO SCH (08:36)
[2017-08-22] MEDS: CLONIDINE HCL 0.1 MG TAB PO SCH (08:51)
[2017-08-22 11:25] VITALS: BP 136/84; PULSE 98; TEMP 36.9; O2SAT 92
[2017-08-22] MEDS ORDERED: METO50TA16 PO (11:26)
[2017-08-22] MEDS ORDERED: FLV1 PO (11:26)
[2017-08-22] MEDS ORDERED: PRT40 PO (11:26)
[2017-08-22] MEDS ORDERED: MULT-890 PO (11:26)
--- NOTE | 2017-08-22 11:29 | Discharge Instructions ---
Discharge Instructions Date of Service Aug 22, 2017. Admission Reason for Admission: Alcohol Withdrawal Syndrome Discharge Discharge Diagnosis / Problem: ALOCHOL WITHDRAWAL SYNDROME Discharge Goals Goal(s): Decrease discomfort, Improve function Activity Recommendations Activity Limitations: resume your previous activity . Instructions / Follow-Up Instructions / Follow-Up FOLLOWUP WITH FAMILY DOCTOR IN ONE WEEK BLOOD PRESSURE FOLLOWUP WITH FAMILY DOCTOR Current Hospital Diet Patient's current hospital diet: AHA Diet (Heart Healthy), Clear Liquid Diet Discharge Diet Recommended Diet: AHA Diet (Heart Healthy) Pending Studies Studies pending at discharge: no Medical Emergencies . Who to Call and When: Medical Emergencies: If at any time you feel your situation is an emergency, please call 911 immediately. . Non-Emergent Contact Non-Emergency issues call your: Primary Care Provider . . "Provider Documentation" section prepared by Pio Valenzuela. .
[2017-08-22 11:44] VITALS: BP 136/84; PULSE 98; TEMP 36.9; O2SAT 92
--- NOTE | 2017-08-22 19:43 | Progress Note ---
Internal Med Progress Note Date of Service: Aug 22, 2017. Provider Documentation: SUBJECTIVE: resting comfortably eating ok feeling better today still has some abdominal pain' afebrile OBJECTIVE: Vital Signs-as noted below Exam: General-alert and oriented. Not in distress ENT-Normal hearing Neck-no neck masses Lungs-cta b/l no wheezing or crackles Heart-S1 and S2 heard regular rate and rhythm no murmurs Abdomen-Soft bowel sounds present mild periumbilical tender no distension Extremities-no edema no erythema Neuro-alert and awake moves extremities Lab data as noted below. ASSESSMENT & PLAN: HYPERTENSIVE URGENCY Was prescribed metoprolol and clonidine when discharged from [facility] in June, but ran out of his meds. patient says he was taking clonidine twice daily currently on Lopressor 50m bid and clonidine 0.1mg bid alcohols withdrawal playing role? clonidine prn better controlled today continue same f/u with pcp ALCOHOL WITHDRAWAL Patient has history of heavy drinking and alcohol withdrawal syndrome. seems last drink 2 days prior to admission started on gabapentin with Ativan alcohol withdrawal protocol thiamine, folic acid and mvi seems stable ELECTROLYTES IMBALANCE Will replace Abdominal pain n/v diarrhea c diff negative ct scan unremarkable Maalox prn patient wants to see GI as he thinks pain from his previous peg tube site Seen by Gi and appreciate inputs request egd? but GI recommends PPI Chest pain ekg unremarkable troponin negative DYSARTHRIA / UNSTEADY GAIT / CEREBROVASCULAR DISEASE Chronic neurologic deficits from previous hx of ischemic strokes. Head CT shows old infarcts with reports similar to previous scans at [facility]. on aspirin could be from alcoholism pt/ot HISTORY OF SEIZURES Suspected history of alcohol withdrawal seizures. Not on medications Seizure precautions. close monitor H/O ASPIRATION PNEUMONIA Probably multifactorial- cerebrovascular disease, alcoholism, etc. Aspiration precautions. stable currently. HISTORY OF PULMONARY NODULES Recent CT chest at [facility] demonstrated small pulmonary nodules. Former smoker. CT follow-up recommended. followup with pcp/pulmonary HEPATITIS C Diagnosed at [facility]. HCV RNA = [id number] 05/28/16. says he is planning for treatment VTE PROPHYLAXIS History of DVT and pulmonary embolism. Coumadin was stopped because of noncompliance and ongoing heavy drinking. SCD's for now. DISPOSITION discharged today Vital Signs: Date Time Temp Pulse Resp B/P (MAP) Pulse Ox O2 Delivery O2 Flow Rate FiO2 08/22/17 11:44 36.9 98 19 92 Room Air 08/22/17 11:25 36.9 98 19 136/84 (101) 92 Room Air 08/22/17 08:00 Room Air 08/22/17 07:49 36.6 67 18 148/96 (113) 93 Room Air 08/22/17 04:00 Room Air 08/22/17 03:45 36.9 67 18 146/97 (113) 94 Room Air 08/22/17 00:00 Room Air 08/21/17 23:23 36.8 73 19 157/104 (121) 94 Room Air 173/113 (133) 08/21/17 20:00 Room Air Lab Results: Results Past 24 Hours Test 08/22/17 06:05 Range/Units White Blood Count 8.81 4.8-10.8 K/uL Red Blood Count 4.61 4.7-6.1 M/uL Hemoglobin 15.0 14.0-18.0 g/dL Hematocrit 42.5 42-52 % Mean Corpuscular Volume 92.2 80-100 fL Mean Corpuscular Hemoglobin 32.5 25-34 pg Mean Corpuscular Hemoglobin Concent 35.3 32-36 g/dl Platelet Count 227 130-400 K/uL Mean Platelet Volume 9.8 7.4-10.4 fL Neutrophils (%) (Auto) 56.1 % Lymphocytes (%) (Auto) 21.2 % Monocytes (%) (Auto) 17.3 % Eosinophils (%) (Auto) 4.8 % Basophils (%) (Auto) 0.3 % Neutrophils # (Auto) 4.94 1.4-6.5 K/uL Lymphocytes # (Auto) 1.87 1.2-3.4 K/uL Monocytes # (Auto) 1.52 0.11-0.59 K/uL Eosinophils # (Auto) 0.42 0-0.5 K/uL Basophils # (Auto) 0.03 0-0.2 K/uL RDW Standard Deviation 40.8 36.4-46.3 fL RDW Coefficient of Variation 12.2 11.5-14.5 % Immature Granulocyte % (Auto) 0.3 % Immature Granulocyte # (Auto) 0.03 0.00-0.02 K/uL Sodium Level 135 136-145 mmol/L Potassium Level 3.8 3.5-5.1 mmol/L Chloride Level 102 98-107 mmol/L Carbon Dioxide Level 27 21-32 mmol/L Anion Gap 6.0 3-11 mmol/L Blood Urea Nitrogen 9 7-18 mg/dl Creatinine 0.96 0.60-1.40 mg/dl Est Creatinine Clear Calc Drug Dose 99.3 ml/min Estimated GFR () 101.3 Estimated GFR (Non- 87.4 BUN/Creatinine Ratio 9.3 10-20 Random Glucose 93 70-99 mg/dl Calcium Level 8.8 8.5-10.1 mg/dl Phosphorus Level 3.2 2.5-4.9 mg/dl Magnesium Level 1.9 1.8-2.4 mg/dl
--- NOTE | 2017-08-22 19:55 | Discharge Summary ---
Discharge Summary Date of Service Aug 22, 2017. Discharge Summary Admission Date: Aug 16, 2017 at 21:12 Discharge Date: Aug 22, 2017 Discharge Disposition: Home (CORRECTIONAL FACILITY) Principal Diagnosis: ALCOHOL WITHDRAWAL HTN ABDOMINAL PAIN Secondary Diagnoses/Problems: (1) Alcohol abuse Status: Chronic (2) Anemia Status: Chronic (3) Basilar artery stenosis Status: Chronic (4) Cerebrovascular disease Permanent Comment: s/p ischemic strokes-right frontal, right parietal, pontine Status: Chronic (5) Chronic pain Status: Chronic (6) COPD (chronic obstructive pulmonary disease) Status: Chronic (7) Difficult intubation Status: Chronic (8) Hepatitis C Status: Chronic (9) History of deep venous thrombosis Status: Chronic (10) History of pulmonary embolism Status: Chronic (11) Hypertension Status: Chronic (12) Hyponatremia Status: Chronic (13) Pulmonary nodules Status: Chronic (14) Seizure Status: Chronic Procedures: KUB: 1. Subsegmental left basilar opacities suggest atelectasis or less likely pneumonitis. 2. Bilateral nodular opacities of the lungs measuring up to 4 mm suggests calcified granulomas. 3. Nonobstructive bowel gas pattern. CT HEAD: 1. No acute intracranial hemorrhage, midline shift or territorial infarction. 2. Ill-defined 8 mm area of low-attenuation within the central glenys suggests age-indeterminate lacunar infarction. Correlate with prior imaging. 3. Atrophy with chronic microvascular ischemic changes, appears advanced for patient's stated age. Encephalomalacia from areas of remote infarction involve the right frontal and parietal lobes. CXR:1. Subsegmental left basilar opacities suggest atelectasis or less likely pneumonitis. 2. Bilateral nodular opacities of the lungs measuring up to 4 mm suggests calcified granulomas. 3. Nonobstructive bowel gas pattern. CERVICAL SPINE CT: 1. No acute cervical spine fracture or subluxation identified. 2. Multilevel degenerative changes of the cervical spine as above. 3 mm anterolisthesis C2 on C3 is likely secondary to long-standing facet arthrosis. CT ABD/PELVIS: No significant abnormality identified within the abdomen or pelvis. Chronic colonic diverticulosis. Postoperative changes to the lumbar spine. Consultations: GI Medication Reconciliation New Medications: Folic Acid (Folic Acid) 1 Mg Tab 1 MG PO QAM, #60 TAB 2 Refills Metoprolol Tartrate (Lopressor) (Lopressor) 50 Mg Tab 50 MG PO BID, #60 TAB 1 Refill Multiple Vitamin (Daily-Jer) 1 Tab Tab 1 TAB PO QAM, #30 TAB 2 Refills Pantoprazole (Pantoprazole Sodium) 40 Mg Tab 40 MG PO BID, #60 TAB 2 Refills Continued Medications: Aspirin (Aspirin Chewable) 81 Mg Chew 81 MG PO DAILY Clonazepam (Klonopin) 1 Mg Tab 1 MG PO QPM, TAB Clonidine Hcl (Catapres) 0.1 Mg Tab 0.1 MG PO BID, TAB Oxycodone Ir (Roxicodone Ir) 5 Mg Tab 5 MG PO Q8H PRN for Pain, TAB Thiamine Hcl (Vitamin B-1) 50 Mg Cap 100 MG PO DAILY, CAP Discontinued Medications: Omeprazole (Prilosec) 20 Mg Capcr 20 MG PO DAILY, CAP Admission Information HPI (per Admitting provider): 57-year-old male from [place], followed by Dr. Woodson. Complicated medical history includes alcohol abuse, cerebrovascular disease with prior ischemic strokes, recurrent aspiration pneumonia, hypertension, DVT, pulmonary embolism, and other problems noted below. Hospitalized at [facility] in February 2017 with aspiration pneumonia complicated by empyema. Managed with antibiotics and chest tube placement. Admitted to [facility] again on 06/16/17 after being found unresponsive. Was found to be confused and hypoxic. Required endotracheal intubation. Treated for alcohol withdrawal. Discharged to home. Incarcerated over the last 24 hours, initially at [facility] and then transferred to [facility]. Upon arrival to [facility], he appeared to be ill, unsteady, and dysarthric. Patient was referred to the ED for further evaluation. In the ED he was found to be hypertensive and tachycardic. History of hypertension, but has not been taking his prescribed hypertensives ( clonidine and metoprolol) for at least 1 week because he ran out of his medications. Patient states that his last alcohol consumption was about 2 days prior to admission. . Physical Exam (per Admitting): CONSTITUTIONAL vital signs as noted above adult male, unkempt, no acute distress EYES conjunctivae injected; lids normal pupils equal and reactive to light EARS, NOSE, MOUTH AND THROAT external inspection of ears and nose unremarkable hard of hearing oropharynx clear dentition poor NECK no masses; trachea midline; healed tracheostomy scar thyroid normal RESPIRATORY normal respiratory effort; no respiratory distress clear to percussion clear to auscultation CARDIOVASCULAR regular rate and rhythm, tachy I/ systolic murmur at base, S4 gallop, no rub appreciated abdominal aorta not palpable pedal pulses intact and symmetric no pretibial edema GASTROINTESTINAL normal bowel sounds, soft, nontender; no palpable masses no hepatomegaly; no splenomegaly LYMPHATIC no cervical adenopathy MUSCULOSKELETAL no cyanosis; no digital clubbing no calf tenderness mild weakness lower extremities SKIN no rash warm and dry NEUROLOGIC PERRL, EOMI, no facial palsy, dysarthric resting tremor PSYCHIATRIC oriented to person, place, time anxious . Hospital Course HYPERTENSIVE URGENCY Was prescribed metoprolol and clonidine when discharged from [facility] in June, but ran out of his meds. patient says he was taking clonidine twice daily currently on Lopressor 50m bid and clonidine 0.1mg bid alcohols withdrawal playing role? clonidine prn better controlled today continue same f/u with pcp ALCOHOL WITHDRAWAL Patient has history of heavy drinking and alcohol withdrawal syndrome. seems last drink 2 days prior to admission started on gabapentin with Ativan alcohol withdrawal protocol thiamine, folic acid and mvi seems stable ELECTROLYTES IMBALANCE Will replace Abdominal pain n/v diarrhea c diff negative ct scan unremarkable Maalox prn patient wants to see GI as he thinks pain from his previous peg tube site Seen by Gi and appreciate inputs request egd? but GI recommends PPI Chest pain ekg unremarkable troponin negative DYSARTHRIA / UNSTEADY GAIT / CEREBROVASCULAR DISEASE Chronic neurologic deficits from previous hx of ischemic strokes. Head CT shows old infarcts with reports similar to previous scans at [facility]. on aspirin could be from alcoholism pt/ot HISTORY OF SEIZURES Suspected history of alcohol withdrawal seizures. Not on medications Seizure precautions. close monitor H/O ASPIRATION PNEUMONIA Probably multifactorial- cerebrovascular disease, alcoholism, etc. Aspiration precautions. stable currently. HISTORY OF PULMONARY NODULES Recent CT chest at [facility] demonstrated small pulmonary nodules. Former smoker. CT follow-up recommended. followup with pcp/pulmonary HEPATITIS C Diagnosed at [facility]. HCV RNA = [id number] 05/28/16. says he is planning for treatment VTE PROPHYLAXIS History of DVT and pulmonary embolism. Coumadin was stopped because of noncompliance and ongoing heavy drinking. SCD's for now. DISPOSITION discharged today Total time spent on discharge = 35MINUTES This includes examination of the patient, discharge planning, medication reconciliation, and communication with other providers. Discharge Instructions Discharge Instructions Date of Service Aug 22, 2017. Admission Reason for Admission: Alcohol Withdrawal Syndrome Discharge Discharge Diagnosis / Problem: ALOCHOL WITHDRAWAL SYNDROME Discharge Goals Goal(s): Decrease discomfort, Improve function Activity Recommendations Activity Limitations: resume your previous activity . Instructions / Follow-Up Instructions / Follow-Up FOLLOWUP WITH FAMILY DOCTOR IN ONE WEEK BLOOD PRESSURE FOLLOWUP WITH FAMILY DOCTOR Current Hospital Diet Patient's current hospital diet: AHA Diet (Heart Healthy), Clear Liquid Diet Discharge Diet Recommended Diet: AHA Diet (Heart Healthy) Pending Studies Studies pending at discharge: no Medical Emergencies . Who to Call and When: Medical Emergencies: If at any time you feel your situation is an emergency, please call 911 immediately. . Non-Emergent Contact Non-Emergency issues call your: Primary Care Provider . . "Provider Documentation" section prepared by Pio Valenzuela.
== END 2017-08-22 12:28 | disposition home or self-care (01) | DRG 305 ==
LOC: C.EDB 15:07 → C.2E 21:12 → ENRESERV 21:35
PROVIDERS: ADMIT Hospitalist; ATTEND Internal Medicine
DX: I16.0 Hypertensive urgency (principal); F10.239 Alcohol dependence with withdrawal, unspecified; T42.4X6A Underdosing of benzodiazepines, initial encounter; I10 Essential (primary) hypertension; I69.322 Dysarthria following cerebral infarction; G40.909 Epilepsy, unspecified, not intractable, without status epilepticus; Z87.891 Personal history of nicotine dependence; Z79.82 Long term (current) use of aspirin; T40.2X6A Underdosing of other opioids, initial encounter; R47.81 Slurred speech; K29.20 Alcoholic gastritis without bleeding; R91.8 Other nonspecific abnormal finding of lung field; Z86.711 Personal history of pulmonary embolism; I65.1 Occlusion and stenosis of basilar artery; B19.20 Unspecified viral hepatitis C without hepatic coma; Z91.14 Patient's other noncompliance with medication regimen; Z86.718 Personal history of other venous thrombosis and embolism; Y92.149 Unspecified place in prison as the place of occurrence of the external cause